=== PATIENT | female | born 1935 | race Caucasian/White ===

== ENCOUNTER → 2016-08-07 | Outpatient (CLI) | payer MEDICARE ==
[~2016-08-07] MED LIST: GASTROGRAFIN SOLUTION 30ML (Q9963) As Ordered ONE; ISOVUE-370 76% 100ML VIAL (Q9967) As Ordered ONE
--- NOTE | 2016-08-07 16:59 | REP ---
CT ABDOMEN: REASON: Abdominal pain, vomiting, and history of pancreatitis. PRIORS: None. CONTRAST: 100 mL [id number]. The precontrast enhanced portion of the examination shows the hepatic and splenic densities to be within normal limits. The surgical clips are seen in the gallbladder fossa from previous cholecystectomy. There are no nephroliths or proximal ureteroliths. Chronic changes are seen throughout the lung bases with cylindrical and varicoid bronchiectasis. Asymmetric densities are seen throughout the lung bases Consistent with fibrotic changes. There are no patchy opacities or pleural effusions. The contrast enhanced portion of the exam shows the liver, spleen, pancreas, and adrenal glands, and kidneys to be within normal limits. The pancreas is somewhat atrophic. The abdominal aorta and paraaortic regions are within normal limits. There are some calcific atherosclerotic changes. There is no free fluid or free air in the abdomen. The bowel loops and their mesenteries are within normal limits. There is no evidence of an intraabdominal mass or adenopathy. The distal transverse colon and descending colon are content filled. There are a few scattered colonic diverticula. CT PELVIS: There are a few scattered sigmoid colon diverticula. There is no mass or adenopathy. There is no free fluid or free air. Bone window technique throughout the exam shows the osseous structures to be within normal limits for the patient's age. IMPRESSION: 1. Chronic lung field changes as described above. Consider complete evaluation with chest CT. 2. No evidence of acute intraabdominal or intrapelvic disease with findings as described above. Signed by Brad Talbert DO 08/10/2016 03:07 P
== END ==
LOC: M RAD 13:20
PROVIDERS: ATTEND Family Medicine
DX: R11.10 Vomiting, unspecified (principal); R10.9 Unspecified abdominal pain
CPT/HCPCS: 74178; Q9963; Q9967

== ENCOUNTER → 2016-08-14 | Outpatient (CLI) | payer MEDICARE ==
[~2016-08-14] MED LIST changes: +E-Z-GAS II EFFERVESCENT PACKET (SODIUM BICARB./CITRIC ACID/SIMETHICONE) As Ordered ONE; +E-Z-HD 98% w/w 340GM SUSP BTL As Ordered ONE; +E-Z-PAQUE 96% w/w SUSP 176GM BTL As Ordered ONE; -GASTROGRAFIN SOLUTION 30ML (Q9963) As Ordered ONE; -ISOVUE-370 76% 100ML VIAL (Q9967) As Ordered ONE
--- NOTE | 2016-08-15 07:58 | REP ---
UPPER GI, AIR CONTRAST: The procedure was performed under the direct supervision of Dr. Andrew. The images were reviewed with Dr. Andrew. The general manager in training film shows no organomegaly or pathological masses. The intestinal gas pattern is nonspecific. There are surgical clips noted in the right upper quadrant. There is residual contrast in the distal colon from the previous CT scan performed on 08/07/2016. The gas producing granules were given in the erect position, however, the patient was unable to stand, therefore liquid barium was administered in the prone oblique position. The oral and pharyngeal stages of deglutition are unremarkable. Esophageal transport is prompt and efficient and there is no esophagitis, stricture or mucosal ring. There is a small hiatal hernia present. Only a few pictures of the stomach and duodenum were able to be obtained because the patient promptly vomited all the contrast back up. The stomach is grossly normal. There is no evidence of gastritis, neoplasm or ulcer disease. The duodenum is grossly normal. The mucosal folds are smooth and regular. There is no evidence of duodenitis, pancreatitis, peptic ulcer disease or neoplasm. The visualized portion of the proximal small bowel appears normal in course and caliber. IMPRESSION: The exam is limited due to patient mobility and the patient vomited up all of the contrast soon after ingesting. There is a small hiatal hernia present. The stomach and duodenum are grossly normal. 57 seconds of fluoroscopy time was utilized for this procedure. Reviewed by EITAN Ruiz 08/17/2016 07:06 PEdited and Signed by Farzad Andrew MD 08/18/2016 03:57 P
== END ==
LOC: M RAD 09:01
PROVIDERS: ATTEND Family Medicine
DX: R10.9 Unspecified abdominal pain (principal); R11.10 Vomiting, unspecified

== ENCOUNTER → 2016-08-21 | Outpatient (REF) | payer MEDICARE | LOC: M SFHCCLAY 13:46 | PROVIDERS: ATTEND Nurse Practitioner Family | DX: N39.0 Urinary tract infection, site not specified (principal) ==

== ENCOUNTER → 2016-09-30 | Outpatient (REF) | payer MEDICARE | LOC: M SFHCCLAY 16:22 | PROVIDERS: ATTEND Family Medicine | DX: R31.29 Other microscopic hematuria (principal) ==

== ENCOUNTER → 2016-12-09 | Outpatient (REF) ==
[2016-12-09 10:38] LABS: MEAN CORPUSCULAR HEMOGLOBIN 33.4 pg (27.0-33.0); MEAN CORPUSCULAR VOLUME 98.5 fl (80.0-96.0); RED CELL DISTRIBUTION WIDTH 13.7 % (11.5-14.5)
[2016-12-09 10:53] LABS: CALCIUM LEVEL 8.7 MG/DL (8.8-10.2); CREATININE FOR GFR 1.18 MG/DL (0.55-1.02); GLOMERULAR FILTRATION RATE 46.7 (>32); POTASSIUM SERUM 4.9 MEQ/L (3.5-5.1)
== END ==
PROVIDERS: ATTEND Family Medicine
DX: I11.9 Hypertensive heart disease without heart failure (principal); I50.9 Heart failure, unspecified

== ENCOUNTER → 2017-01-06 | Outpatient (REF) ==
[2017-01-06 09:32] LABS: MEAN CORPUSCULAR HEMOGLOBIN 31.9 pg (27.0-33.0); MEAN CORPUSCULAR HGB CONC 32.8 g/dl (32.0-36.5); MEAN CORPUSCULAR VOLUME 97.3 fl (80.0-96.0); RED CELL DISTRIBUTION WIDTH 13.1 % (11.5-14.5); WHITE BLOOD COUNT 9.4 10^3/uL (4.0-10.0)
[2017-01-06 10:16] LABS: CALCIUM LEVEL 8.5 MG/DL (8.8-10.2); CREATININE FOR GFR 1.18 MG/DL (0.55-1.02); GLOMERULAR FILTRATION RATE 46.7 (>32)
== END ==
PROVIDERS: ATTEND Family Medicine
DX: I10 Essential (primary) hypertension (principal)

== ENCOUNTER → 2017-03-03 | Outpatient (REF) | PROVIDERS: ATTEND Family Medicine | DX: E11.9 Type 2 diabetes mellitus without complications (principal) ==

== ENCOUNTER → 2017-03-16 | Outpatient (REF) ==
[2017-03-16 11:48] LABS: CALCIUM LEVEL 8.6 MG/DL (8.8-10.2); CREATININE FOR GFR 1.28 MG/DL (0.55-1.02); GLOMERULAR FILTRATION RATE 42.5 (>32); POTASSIUM SERUM 3.5 MEQ/L (3.5-5.1)
== END ==
PROVIDERS: ATTEND Family Medicine
DX: E87.6 Hypokalemia (principal)

== ENCOUNTER → 2017-03-31 | Outpatient (REF) ==
[2017-03-31 11:17] LABS: MEAN CORPUSCULAR VOLUME 94.2 fl (80.0-96.0); PLATELET COUNT, AUTOMATED 160 10^3/uL (150-450); RED CELL DISTRIBUTION WIDTH 12.8 % (11.5-14.5); WHITE BLOOD COUNT 8.4 10^3/uL (4.0-10.0)
[2017-03-31 11:49] LABS: CALCIUM LEVEL 8.3 MG/DL (8.8-10.2); CREATININE FOR GFR 1.37 MG/DL (0.55-1.02); GLOMERULAR FILTRATION RATE 39.3 (>32); POTASSIUM SERUM 3.5 MEQ/L (3.5-5.1)
== END ==
PROVIDERS: ATTEND Family Medicine
DX: I10 Essential (primary) hypertension (principal)

== ENCOUNTER → 2017-04-29 | Outpatient (REF) | DX: D72.829 Elevated white blood cell count, unspecified (principal) ==

== ENCOUNTER → 2017-04-29 | Outpatient (REF) ==
[2017-04-29 14:16] LABS: HEMATOCRIT 35.8 % (36.0-47.0); HEMOGLOBIN 12.2 g/dl (12.0-16.0); MEAN CORPUSCULAR HEMOGLOBIN 32.5 pg (27.0-33.0); MEAN CORPUSCULAR HGB CONC 34.1 g/dl (32.0-36.5); MEAN CORPUSCULAR VOLUME 95.5 fl (80.0-96.0); PLATELET COUNT, AUTOMATED 171 10^3/uL (150-450); RED BLOOD COUNT 3.75 10^6/uL (4.00-5.40); RED CELL DISTRIBUTION WIDTH 12.6 % (11.5-14.5); WHITE BLOOD COUNT 13.4 10^3/uL (4.0-10.0)
[2017-04-29 14:53] LABS: ANION GAP 7 MEQ/L (8-16); BLOOD UREA NITROGEN 22 MG/DL (7-18); CALCIUM LEVEL 8.5 MG/DL (8.8-10.2); CARBON DIOXIDE LEVEL 31 MEQ/L (21-32); CHLORIDE LEVEL 98 MEQ/L (98-107); CREATININE FOR GFR 1.26 MG/DL (0.55-1.02); GLOMERULAR FILTRATION RATE 43.3 (>32); GLUCOSE, FASTING 222 MG/DL (83-110); POTASSIUM SERUM 3.8 MEQ/L (3.5-5.1); SODIUM LEVEL 136 MEQ/L (136-145)
== END ==
DX: R05 Cough (principal)

== ENCOUNTER → 2017-04-30 | Outpatient (REF) ==
[2017-04-30 09:30] LABS: HEMATOCRIT 38.4 % (36.0-47.0); HEMOGLOBIN 12.9 g/dl (12.0-16.0); MEAN CORPUSCULAR HEMOGLOBIN 31.9 pg (27.0-33.0); MEAN CORPUSCULAR HGB CONC 33.6 g/dl (32.0-36.5); PLATELET COUNT, AUTOMATED 198 10^3/uL (150-450); RED BLOOD COUNT 4.04 10^6/uL (4.00-5.40); RED CELL DISTRIBUTION WIDTH 12.5 % (11.5-14.5); WHITE BLOOD COUNT 12.7 10^3/uL (4.0-10.0)
== END ==
DX: D72.829 Elevated white blood cell count, unspecified (principal)

== ENCOUNTER → 2017-06-08 | Outpatient (REF) ==
[2017-06-08 10:43] LABS: ESTIMATED AVERAGE GLUCOSE 186 MG/DL (60-110); HEMOGLOBIN A1c 8.1 %
== END ==
DX: E11.9 Type 2 diabetes mellitus without complications (principal)

== ENCOUNTER → 2017-10-05 | Outpatient (REF) | payer MEDICARE, OTHER ==
[2017-10-05 11:58] LABS: HEMATOCRIT 39.2 % (36.0-47.0); HEMOGLOBIN 13.1 g/dl (12.0-15.5); MEAN CORPUSCULAR HGB CONC 33.4 g/dl (32.0-36.5); MEAN CORPUSCULAR VOLUME 95.8 fl (80.0-96.0); PLATELET COUNT, AUTOMATED 161 10^3/uL (150-450); RED BLOOD COUNT 4.09 10^6/uL (4.00-5.40); RED CELL DISTRIBUTION WIDTH 12.7 % (11.5-14.5); WHITE BLOOD COUNT 10.8 10^3/uL (4.0-10.0)
[2017-10-05 12:23] LABS: ANION GAP 10 MEQ/L (8-16); BLOOD UREA NITROGEN 26 MG/DL (7-18); CALCIUM LEVEL 8.7 MG/DL (8.8-10.2); CARBON DIOXIDE LEVEL 30 MEQ/L (21-32); CHLORIDE LEVEL 100 MEQ/L (98-107); CREATININE FOR GFR 1.38 MG/DL (0.55-1.30); GLUCOSE, FASTING 197 MG/DL (70-100); POTASSIUM SERUM 3.7 MEQ/L (3.5-5.1); SODIUM LEVEL 140 MEQ/L (136-145)
== END ==
DX: I10 Essential (primary) hypertension (principal)
CPT/HCPCS: 80048

== ENCOUNTER → 2017-11-11 | Outpatient (REF) | payer MEDICARE, OTHER | LOC: SKLAB3 17:30 | DX: R05 Cough (principal) | CPT/HCPCS: 87633 ==

== ENCOUNTER → 2017-11-12 | Outpatient (REF) | payer MEDICARE, OTHER ==
[2017-11-12 10:13] LABS: HEMATOCRIT 37.1 % (36.0-47.0); HEMOGLOBIN 12.6 g/dl (12.0-15.5); MEAN CORPUSCULAR HEMOGLOBIN 32.6 pg (27.0-33.0); MEAN CORPUSCULAR VOLUME 96.1 fl (80.0-96.0); PLATELET COUNT, AUTOMATED 138 10^3/uL (150-450); RED BLOOD COUNT 3.86 10^6/uL (4.00-5.40); RED CELL DISTRIBUTION WIDTH 12.9 % (11.5-14.5)
[2017-11-12 10:27] LABS: ANION GAP 10 MEQ/L (8-16); BLOOD UREA NITROGEN 16 MG/DL (7-18); CALCIUM LEVEL 8.8 MG/DL (8.8-10.2); CARBON DIOXIDE LEVEL 28 MEQ/L (21-32); CHLORIDE LEVEL 100 MEQ/L (98-107); CREATININE FOR GFR 1.28 MG/DL (0.55-1.30); GLOMERULAR FILTRATION RATE 42.4 (>32); GLUCOSE, FASTING 133 MG/DL (70-100); POTASSIUM SERUM 3.4 MEQ/L (3.5-5.1); SODIUM LEVEL 138 MEQ/L (136-145)
== END ==
DX: R05 Cough (principal)
CPT/HCPCS: 80048

== ENCOUNTER → 2017-11-15 | Outpatient (REF) | payer MEDICARE, OTHER | DX: R05 Cough (principal); I51.7 Cardiomegaly | CPT/HCPCS: 71045 ==

== ENCOUNTER → 2017-11-19 | Outpatient (REF) | payer MEDICARE, OTHER | DX: R06.2 Wheezing (principal) | CPT/HCPCS: 71045 ==

== ENCOUNTER → 2017-12-07 | Outpatient (REF) | payer MEDICARE, OTHER ==
[2017-12-07 10:05] LABS: ESTIMATED AVERAGE GLUCOSE 157 MG/DL (60-110); HEMOGLOBIN A1c 7.1 %
== END ==
DX: E11.9 Type 2 diabetes mellitus without complications (principal)
CPT/HCPCS: 83036

== ENCOUNTER → 2018-04-06 | Outpatient (REF) ==
[2018-04-06 09:55] LABS: HEMATOCRIT 39.9 % (36.0-47.0); HEMOGLOBIN 13.3 g/dl (12.0-15.5); MEAN CORPUSCULAR HEMOGLOBIN 31.5 pg (27.0-33.0); MEAN CORPUSCULAR HGB CONC 33.3 g/dl (32.0-36.5); MEAN CORPUSCULAR VOLUME 94.5 fl (80.0-96.0); PLATELET COUNT, AUTOMATED 158 10^3/uL (150-450); RED BLOOD COUNT 4.22 10^6/uL (4.00-5.40)
[2018-04-06 10:23] LABS: CALCIUM LEVEL 8.7 MG/DL (8.8-10.2); CREATININE FOR GFR 1.22 MG/DL (0.55-1.30); GLOMERULAR FILTRATION RATE 44.8 (>32)
== END ==
PROVIDERS: ATTEND Family Medicine
DX: I10 Essential (primary) hypertension (principal)

== ENCOUNTER → 2018-06-07 | Outpatient (REF) ==
[2018-06-07 10:04] LABS: HEMOGLOBIN A1c 7.2 %
== END ==
PROVIDERS: ATTEND Family Medicine
DX: E11.9 Type 2 diabetes mellitus without complications (principal); Z79.899 Other long term (current) drug therapy

== ENCOUNTER 2018-09-16 09:07 | Inpatient (IN) | payer MEDICARE, OTHER ==
[~2018-09-16] VITALS: Ht 165.1 cm; Wt 80.8 kg
[~2018-09-16 09:07] MED LIST changes: -E-Z-GAS II EFFERVESCENT PACKET (SODIUM BICARB./CITRIC ACID/SIMETHICONE) As Ordered ONE; -E-Z-HD 98% w/w 340GM SUSP BTL As Ordered ONE; -E-Z-PAQUE 96% w/w SUSP 176GM BTL As Ordered ONE; +cloNIDine HCL 0.1 MG/24 HR PATCH TOP SCH
--- NOTE | 2018-09-16 09:46 | REP ---
CT Head without contrast HISTORY: Infarction COMPARISON: None Areas of decreased attenuation are present in the basal ganglia and left internal capsule. These represent old lacunar infarctions. Areas of decreased attenuation are present in the periventricular and subcortical white matter. This represents small-vessel ischemic disease. There is no intraparenchymal hemorrhage, acute infarct, mass or midline shift. The ventricular system and cortical sulci are dilated consistent with moderate volume loss. There is no extra cerebral collection. There is no fracture. Mucosal thickening is present in the ethmoid and maxillary sinuses. A right ocular prosthesis is present. IMPRESSION: 1. 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 2. Small vessel ischemic disease. 3. Moderate volume loss. Electronically Signed by Omar Brambila MD 09/16/2018 09:37 A
[2018-09-16] MEDS ORDERED: GLIP5TAB8 PO ×2 (09:49)
[2018-09-16] MEDS ORDERED: LISI10TA4 PO (09:49)
[2018-09-16] MEDS ORDERED: MILKSUS7 PO (09:49)
[2018-09-16] MEDS ORDERED: COLA100C5 PO (09:49)
[2018-09-16] MEDS ORDERED: METO1TAB7 PO (09:49)
[2018-09-16] MEDS ORDERED: ZOFR4TAB16 PO (09:49)
[2018-09-16] MEDS ORDERED: DULC10SU2 PR (09:49)
[2018-09-16] MEDS ORDERED: ECOT81TA5 PO (09:49)
[2018-09-16] MEDS ORDERED: SENN-23 PO (09:49)
[2018-09-16] MEDS ORDERED: BIMA01SOL OS (09:49)
[2018-09-16] MEDS ORDERED: ENEMENE PR (09:49)
[2018-09-16] MEDS ORDERED: SERT-138 PO (09:49)
[2018-09-16] MEDS ORDERED: SIMV40TA2 PO (09:49)
[2018-09-16] MEDS ORDERED: ACET-907 PO (09:49)
[2018-09-16] MEDS ORDERED: OMEP40CA2 PO (09:51)
[2018-09-16] MEDS ORDERED: FURO20TA2 PO (09:51)
[2018-09-16 10:14] LABS: BASO % 0.4 % (0.0-1.0); EOS # 0.1 10^3/uL (0.0-0.50); HEMATOCRIT 37.8 % (36.0-47.0); HEMOGLOBIN 12.5 g/dl (12.0-15.5); LYMPH # 1.4 10^3/uL (1.5-4.5); LYMPH % 15.3 % (24.0-44.0); MEAN CORPUSCULAR HEMOGLOBIN 32.5 pg (27.0-33.0); MEAN CORPUSCULAR HGB CONC 33.1 g/dl (32.0-36.5); MEAN CORPUSCULAR VOLUME 98.2 fl (80.0-96.0); MONO # 0.6 10^3/uL (0.0-0.8); MONO % 5.9 % (0.0-5.0); NEUTROPHILS # 7.1 10^3/uL (1.8-7.7); NEUTROPHILS % 76.9 % (36.0-66.0); PLATELET COUNT, AUTOMATED 158 10^3/uL (150-450); RED BLOOD COUNT 3.85 10^6/uL (4.00-5.40); WHITE BLOOD COUNT 9.3 10^3/uL (4.0-10.0)
[2018-09-16 10:24] LABS: INR 1.05; PROTHROMBIN TIME 13.8 SECONDS (12.1-14.4)
[2018-09-16 10:25] LABS: PARTIAL THROMBOPLASTIN TIME 42.1 SECONDS (25.4-37.6)
[2018-09-16 10:37] LABS: CALCIUM LEVEL 9.4 MG/DL (8.8-10.2); CREATININE FOR GFR 1.31 MG/DL (0.55-1.30); GLOMERULAR FILTRATION RATE 41.3 (>32); MB/CK RELATIVE INDEX 3.55 (< OR =4); POTASSIUM SERUM 4.3 MEQ/L (3.5-5.1); TROPONIN I 0.02 NG/ML (< 0.10)
--- NOTE | 2018-09-16 10:39 | REP ---
CHEST, PORTABLE: AP portable view of the chest is performed and compared to a prior study of 11/19/2017. Chronic interstitial changes are stable. There is mild cardiomegaly. The mediastinal silhouette is unchanged. IMPRESSION: Stable chronic changes. No acute infiltrate. Electronically Signed by Farzad Andrew MD 09/20/2018 09:41 A
[2018-09-16] MEDS ORDERED: DEXTROSE 50% 50 ML SYRINGE IV PRN (13:45)
[2018-09-16] MEDS ORDERED: GLUCAGON FOR INJ 1 MG VIAL (J1610) SC PRN (13:45)
[2018-09-16] MEDS ORDERED: GLUCOSE 4 GM CHEW TABLET PO PRN (13:45)
--- NOTE | 2018-09-16 13:54 | REP ---
MRA Brain without contrast History: Right side weakness 3-D [id number] MR angiography was performed at the level of the [place]. Examination is limited secondary to motion. There is no aneurysm or arteriovenous malformation. Mild atherosclerotic disease involves the cavernous internal carotid arteries. Moderate atherosclerotic disease involves the middle cerebral artery trifurcations. Major intracranial vessels are patent. The left vertebral artery is dominant. Impression: 1. There is no aneurysm or arteriovenous malformation. 2. Atherosclerotic disease as described above. Electronically Signed by Omar Brambila MD 09/16/2018 01:46 P
[2018-09-16] MEDS: LISINOPRIL 5 MG TAB PO SCH ×2 (14:45→21:51)
--- NOTE | 2018-09-16 14:52 | REP ---
MR BRAIN WITHOUT CONTRAST: HISTORY: Right side weakness. COMPARISON: CT 09/16/2018. An area of increased signal intensity on diffusion weighted images is present in the posterior limb of the left internal capsule. This is decreased in signal intensity on ADC images and is consistent with an acute infarction. Areas of increased signal intensity on T2-weighted images are present in the basal ganglia, genu of the left internal capsule, and right thalamus. These represent old lacunar infarctions. Areas of increased signal intensity on T2-weighted images are present in the periventricular and subcortical white matter and cory. This represents small vessel ischemic disease. There is no intraparenchymal hemorrhage, mass, or midline shift. The ventricular system and cortical sulci are dilated consistent with moderate volume loss. There is no extracerebral collection. Mucosal thickening is present in the ethmoid and maxillary sinuses. An ocular prosthesis is present. IMPRESSION: 1. Acute left internal capsule lacunar infarction. 2. Old bilateral basal ganglia, left internal capsule and right thalamic lacunar infarctions. 3. Small vessel ischemic disease. 4. Moderate volume loss. Electronically Signed by Omar Brambila MD 09/16/2018 03:06 P
[2018-09-16 15:00] VITALS: BP 210/92
--- NOTE | 2018-09-16 15:14 | HPEPDOC ---
General Date of Admission 09/16/18 Date of Service: Sep 16, 2018 Chief Complaint The patient is a 82-year-old female admitted with a reason for visit of [facility]. 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 It was also noted that she was weaker on the right side compared to left and needed 2 max assist to get her back from WC to bed when normally she needs only 1 assist. Last time she was noted to be well is unclear from the [place] notes but it is in the night sometime before 6:00Am. Patient was brought to the ED as a stroke call. CT head in the ED was negative for any acute infarction or hemorrhage. MRA brain negative. Pending MRI brain. On my interview patient complained about problem speaking , denied any swallowing problems. She did indicate that she was unable to hold up her right hand but showed me that she was able to hold up her left hand above her head. Family says her right side is weaker than left which is new. Normally right and left sides are symmetrically weak. She has not been able to walk for more than a year due to leg weakness. The patient knew she was in the hospital. Home Medications Scheduled Aspirin (Ecotrin) 81 Mg Tablet.dr, 81 MG PO DAILY, (Reported) Bimatoprost (Lumigan) 0.01% 2.5ML Drops, 1 DROP OS QHS, (Reported) Docusate Sodium (Colace) 100 Mg Capsule, 100 MG PO QHS, (Reported) Furosemide (Furosemide) 20 Mg Tablet, 20 MG PO DAILY, (Reported) Glipizide (Glipizide) 5 Mg Tablet, 5 MG PO DAILY, (Reported) Glipizide (Glipizide) 5 Mg Tablet, 2.5 MG PO QHS, (Reported) Lisinopril (Lisinopril) 10 Mg Tablet, 15 MG PO QHS, (Reported) Metoprolol Succinate (Metoprolol Succinate) 50 Mg Tab.er.24h, 50 MG PO DAILY, (Reported) Omeprazole (Omeprazole) 40 Mg Capsule.dr, 40 MG PO BID, (Reported) Sennosides/Docusate Sodium (Senna-S Tablet) 1 Each Tablet, 2 TAB PO QHS, (Reported) Sertraline HCl (Sertraline HCl) 100 Mg Tablet, 100 MG PO DAILY, (Reported) Simvastatin (Simvastatin) 40 Mg Tablet, 40 MG PO QHS, (Reported) Scheduled PRN Acetaminophen (Tylenol) 325 Mg Tablet, 650 MG PO Q4H PRN for PAIN, (Reported) Bisacodyl (Dulcolax) 10 Mg Supp.rect, 10 MG [place] DAILY PRN for CONSTIPATION, (Reported) Magnesium Hydroxide (Milk of Magnesia) 400 Mg/5 Ml Oral.susp, 30 ML PO DAILY PRN for CONSTIPATION, (Reported) Ondansetron HCl (Zofran) 4 Mg Tablet, 4 MG PO Q6H PRN for NAUSEA OR VOMITING, (Reported) Sodium Phosphate,[place]-Dibasic (Enema) 133 Ml Enema, 1 RADHA [place] DAILY PRN for CONSTIPATION, (Reported) Allergies Coded Allergies: No Known Allergies (Verified , 10/16/02) Past Medical History Medical History 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 DEPRESSION , HYPERTENSION, ORTHOSTATIC HYPOTENSION, DM , HYPERCHOLESTEROLEMIA , HISTORY OF PANCREATITIS , ARTHRITIS , ENTHESOPATHY OF HIP REGION , ACTINIC KERATOSIS , URINARY INCONTINENCE, CHF , Chronic right sided weakness Surgical History TENDON REPAIR LEFT THUMB , RIGHT EYE REMOVAL DUE TO ULCERATION , GALLBLADDER , TOTAL HYSTERECTOMY Family History FATHER: 58 YRS, SUICIDE MOTHER: , LIVED TO 91, SIBLINGS: , BROTHER WITH ASTHMA, 62; SISTER HAD COLON CA 2 SON(S) - HEALTHY Social History * Smoker: non-smoker Alcohol: Denies Drugs: denies A-FIB/CHADSVASC A-FIB History Current/History of A-Fib/PAF?: No Review of Systems Constitutional: Reports: Weakness; Denies: Chills, Fever, Night Sweats ENT: Reports: Dysphagia Skin: Denies: Rash, Lesions, Breakdown Pulmonary: Denies: Dyspnea, Cough Cardiovascular: Denies: Chest Pain, Palpitations, Orthopnea, Paroxysmal Noc. 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 Mucous membranes dry) Neck Exam: Positive: Supple; Negative: JVD, thyromegaly Chest Exam: Positive: Clear to auscultation, Normal air movement Heart Exam: Positive: Rate Normal, Regular Rhythm, Normal S1, Normal S2; Negative: Murmurs, Rubs Telemetry: Positive: No significant arrhythmia Abdomen Exam: Positive: Normal bowel sounds, Soft; Negative: Tenderness, Hepatospenomegaly Extremity Exam: Negative: Clubbing, Cyanosis, Edema Neuro Exam: Positive: Normal Tone, Other (slurred speech, right facial droop, strength left upper 4/5 left lower 3/5, right upper 3/5 right lower 2/5) Psych Exam: Positive: Anxiety, Other (oriented x 2) Vital Signs Vital Signs Date Time Temp Pulse Resp B/P (MAP) Pulse Ox O2 Delivery O2 Flow Rate FiO2 09/16/18 10:37 56 100 09/16/18 10:30 18 177/82 (113) Laboratory Data Labs 24H Laboratory Tests 2 09/16/18 09:17: Immature Granulocyte % (Auto) 0.5, White Blood Count 9.3, Red Blood Count 3.85L, Hemoglobin 12.5, Hematocrit 37.8, Mean Corpuscular Volume 98.2H, Mean Corpuscular Hemoglobin 32.5, Mean Corpuscular Hemoglobin Concent 33.1, Red Cell Distribution Width 13.2, Platelet Count 158, Neutrophils (%) (Auto) 76.9H, Lymphocytes (%) (Auto) 15.3L, Monocytes (%) (Auto) 5.9H, Eosinophils (%) (Auto) 1.0, Basophils (%) (Auto) 0.4, Neutrophils # (Auto) 7.1, Lymphocytes # (Auto) 1.4L, Monocytes # (Auto) 0.6, Eosinophils # (Auto) 0.1, Basophils # (Auto) 0.0, Nucleated Red Blood Cells % (auto) 0.0, Prothrombin Time 13.8, Prothromb Time International Ratio 1.05, Activated Partial Thromboplast Time 42.1H, Anion Gap 7L, Glomerular Filtration Rate 41.3, Blood Urea Nitrogen 18, Creatinine 1.31H, Sodium Level 141, Potassium Level 4.3, Chloride Level 104, Carbon Dioxide Level 30, Calcium Level 9.4, Total Creatine Kinase 31, Creatine Kinase MB 1.0, Creatine Kinase MB Relative Index 3.55, Troponin I 0.02 CBC/BMP Laboratory Tests 09/16/18 09:17 Red Blood Count 3.85 L, Mean Corpuscular Volume 98.2 H, Mean Corpuscular Hemoglobin 32.5, Mean Corpuscular Hemoglobin Concent 33.1, Red Cell Distribution Width 13.2, Neutrophils (%) (Auto) 76.9 H, Lymphocytes (%) (Auto) 15.3 L, Monocytes (%) (Auto) 5.9 H, Eosinophils (%) (Auto) 1.0, Basophils (%) (Auto) 0.4, Neutrophils # (Auto) 7.1, Lymphocytes # (Auto) 1.4 L, Monocytes # (Auto) 0.6, Eosinophils # (Auto) 0.1, Basophils # (Auto) 0.0, Calcium Level 9.4, Total Creatine Kinase 31 Assessment/Plan 82 year old female from [facility], wheel chair bound, stand to pivot with 1 assist with 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 It was also noted that she was weaker on the right side than usual and needed 2 max assist to get her back from WC to bed when normally she needs only 1 assist. Last time she was noted to be well is unclear from the [place] notes but it is in the night sometime before 6:00Am. Patient was brought to the ED as a stroke call. Pateint admitted to the hospitalist service for Stroke. Acute Ischemic stroke patient with right sided hemiparesis awaiting MRI brain Will continue ASA, Statin, consult neurology permissive Hypertension allow SBP of 160 to 180. Dysphagia Nurse noted difficulty in swallowing water swallow evaluation If cannot swallow then will have to upgrade to PCU as may need IV blood pressure medications. As per her advance directive: No feeding tube. Hypertension SBP in 190 to 200 will continue metoprolol and lisinopril bid and clonidine prn with hold parameters if the patient can swallow will use clonidine patch if SBP> 180 if patient cannot swallow. Diabetes sugars controlled will give lispro sliding scale AC hold glipizide as unsure if the patient will be able to eat or not. Hypercholesterolemia continue statin Depression sertraline. CODE: DNR and DNI Plan / VTE VTE Prophylaxis Ordered?: Yes RADHA DODSON MD Sep 16, 2018 12:49
[2018-09-16] MEDS: METOPROLOL SUCC (TopROL XL) 50MG **XL** TAB PO SCH (15:40)
[2018-09-16] MEDS: SERTRALINE 100 MG TAB PO SCH (15:40)
[2018-09-16] MEDS: ASPIRIN 81 MG ENTERIC TAB PO SCH (15:40)
[2018-09-16 15:54] VITALS: BP 164/81
[2018-09-16] MEDS ORDERED: hydrALAZINE INJ 20 MG/ML VIAL IV ONE (16:00)
--- NOTE | 2018-09-16 16:03 | NUR ---
Pt presents with moderate-severe oropharyngeal dysphagia as characterized by decreased right oral sensation, tongue deviation to the right and right lip droop. Pt. vocal quality is wet and swallow is audible with thin and nectar thick liquids. Pt. does not follow commands consistently. Recommend: Puree solids and honey thick liquids. Meds crushed in puree assist. Full upright position. Assist with feeding. Limit bite size to approximately 1/2 teaspoon. Addendum: 09/16/18 at 1606 by DELON MARTINEZ [facility] Amended: Links added.
[2018-09-16] MEDS ORDERED: CLOPIDOGREL 75 MG TAB PO ONE (16:30)
[2018-09-16] MEDS: cloNIDine 0.1 MG TAB PO SCH (17:26)
[2018-09-16] MEDS: HumaLOG INSULIN (NovoLOG) PER UNIT SC SCH (17:30)
[2018-09-16 17:47] VITALS: BP 204/94
[2018-09-16 18:41] VITALS: BP 191/88
[2018-09-16 18:50] VITALS: BP 154/70
[2018-09-16] MEDS ORDERED: glipiZIDE (GLUCOTROL) 5 MG TAB PO SCH (21:00)
[2018-09-16] MEDS: OMEPRAZOLE 20 MG CAP PO SCH (21:50)
[2018-09-16] MEDS: SIMVASTATIN 40 MG TAB PO SCH (21:51)
[2018-09-16 22:00] VITALS: BP 190/85
[2018-09-17 06:00] VITALS: BP 188/78
[2018-09-17] MEDS: cloNIDine 0.1 MG TAB PO SCH ×4 (06:37→21:13)
[2018-09-17 06:53] LABS: BASO % 0.3 % (0.0-1.0); EOS # 0.1 10^3/uL (0.0-0.50); EOS % 1.3 % (0.0-3.0); HEMATOCRIT 34.6 % (36.0-47.0); HEMOGLOBIN 11.2 g/dl (12.0-15.5); LYMPH # 1.3 10^3/uL (1.5-4.5); LYMPH % 19.5 % (24.0-44.0); MEAN CORPUSCULAR HEMOGLOBIN 31.3 pg (27.0-33.0); MEAN CORPUSCULAR HGB CONC 32.4 g/dl (32.0-36.5); MEAN CORPUSCULAR VOLUME 96.6 fl (80.0-96.0); MONO # 0.5 10^3/uL (0.0-0.8); NEUTROPHILS # 4.9 10^3/uL (1.8-7.7); NEUTROPHILS % 71.6 % (36.0-66.0); PLATELET COUNT, AUTOMATED 145 10^3/uL (150-450); RED BLOOD COUNT 3.58 10^6/uL (4.00-5.40); WHITE BLOOD COUNT 6.9 10^3/uL (4.0-10.0)
[2018-09-17 07:18] LABS: CALCIUM LEVEL 8.6 MG/DL (8.8-10.2); CREATININE FOR GFR 1.23 MG/DL (0.55-1.30); GLOMERULAR FILTRATION RATE 44.4 (>32)
--- NOTE | 2018-09-17 08:39 | ECGEPIP ---
[facility] - ED Test Date: 2018-09-16 Pat Name: JORGE GOMEZ Department: Room: - Gender: Female School Cleaner: remi : 1935 Requested By: Antonina Saleh Order Number: [id number] Reading MD: Fazal Butcher Measurements Intervals [place] Rate: 60 P: DC: -1 QRS: 1 QRSD: 86 T: 44 QT: 455 QTc: 455 Interpretive Statements SUPRAVENTRICULAR RHYTHM- likely sinus but limited interpretation due to baseline artifact Delayed anterior R wave progression Comparison tracing not on file Electronically Signed on 09-17-2018 8:39:49 EDT by Fazal Butcher
[2018-09-17] MEDS: METOPROLOL SUCC (TopROL XL) 50MG **XL** TAB PO SCH (08:45)
[2018-09-17] MEDS: ENOXAPARIN 30 MG/0.3 ML SYR (J1650) SC SCH (08:51)
[2018-09-17] MEDS: HumaLOG INSULIN (NovoLOG) PER UNIT SC SCH ×3 (08:51→17:32)
[2018-09-17] MEDS: SERTRALINE 100 MG TAB PO SCH (08:52)
[2018-09-17] MEDS: LISINOPRIL 5 MG TAB PO SCH ×2 (08:52→21:00)
[2018-09-17] MEDS: ASPIRIN 81 MG ENTERIC TAB PO SCH (08:52)
[2018-09-17] MEDS: OMEPRAZOLE 20 MG CAP PO SCH ×2 (08:52→21:13)
[2018-09-17] MEDS: CLOPIDOGREL 75 MG TAB PO SCH (08:52)
[2018-09-17] MEDS ORDERED: glipiZIDE (GLUCOTROL) 5 MG TAB PO SCH (09:00)
--- NOTE | 2018-09-17 09:37 | CR ---
DATE OF CONSULTATION: 09/16/2018 REFERRING PHYSICIAN: Dr. Tami Swanson REASON FOR CONSULTATION: Slurred speech and right-sided weakness. HISTORY OF PRESENT ILLNESS: Emily Antoine is an 82-year-old woman with history of multiple system atrophy with autonomic failure, recurrent falls, who lives at [facility]. The patient has not been able to walk over the last couple of years. She sometimes gets confused and has cognitive deficits. She did not have any trouble speaking yesterday. When nurses went to check up on her first thing in the morning around 07:30 a.m., she was found to have slurred speech and right-sided arm and leg weakness. She was brought to [facility] for further evaluation. The patient is able to understand and follow commands. She appears to have slurred speech. Her slurred speech improved towards the end of my visit with her today. She had more weakness on right arm and leg this morning. This evening, she is moving her right arm and leg slightly more. She denies any headaches, neck or back pain. She denies dysphasia, diplopia, urinary incontinence, falls, or loss of consciousness. Her CT scan of head was unremarkable. MRI scan of brain showed acute left internal capsule ischemic stroke. MRA brain was unremarkable except mild atherosclerosis of bilateral carotid arteries. 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 HOME MEDICATIONS: aspirin 81 mg by mouth, Lumigan eyedrops, glipizide 5 mg by mouth in the morning and 2.5 mg in the evening, lisinopril 10 mg 1-1/2 tablet by mouth daily, metoprolol 50 mg by mouth daily, Prilosec 40 mg by mouth twice a day, Zoloft 100 mg by mouth daily, simvastatin 40 mg by mouth daily, Lasix 20 mg by mouth daily, Colace 1 mg by mouth daily. ALLERGIES: None. SOCIAL HISTORY: She denies smoking, alcohol, illicit drugs. FAMILY HISTORY: Father committed suicide. Mother lived up to 91 years age. Sister had colon cancer. REVIEW OF SYSTEMS: All systems were reviewed and found to noncontributory except as mentioned in history of present illness. PHYSICAL EXAMINATION: Pulse 56, respiratory rate 18, blood pressure 177/82, 100% saturations on room air. Heart: Regular rate and rhythm. Lungs: Clear to auscultation. Abdomen: Soft, nontender, nondistended. No pedal edema. No musculoskeletal abnormalities. No rash. No signs of meningeal irritation. No tremor. The patient is awake, alert, oriented to person. She has significant expressive aphasia which improved towards end of the visit. She has right-sided upper motor neuron type facial weakness. Tongue and uvula are midline. Extraocular muscles are intact on the left side. She has a right prosthetic eye. Right arm and leg strength is 3- /5. Strength on left side is 5/5. Right plantar is upgoing. Deep tendon reflexes are 1+ throughout in arms and absent in legs. She has decreased cold pinprick vibration sensation in her feet. Gait was not tested. ASSESSMENT: 1. Acute left internal capsule ischemic stroke. 2. Bilateral basal ganglia old lacunar strokes and small-vessel ischemic disease of brain. 3. 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 4. Diabetic peripheral neuropathy. 5. Diabetes, hypertension, and dyslipidemia. PLAN: 1. Carotid ultrasound. 2. Echocardiogram and continue telemetry monitoring. 3. Plavix 75 mg by mouth daily and aspirin 81 mg by mouth daily. 4. Simvastatin 40 mg by mouth daily. 5. Keep systolic blood pressure below 180 and diastolic blood pressure below 100. Edited 09/17/2018 aml
[2018-09-17 09:59] VITALS: BP 150/72
--- NOTE | 2018-09-17 10:36 | IPNPDOC ---
Subjective Date Seen The patient was seen on 09/17/18. Subjective Chief Complaint/HPI Continues to have slurring of speech and facial droop on the right side, continues to have right hemiparesis. No fever or chills, has been able to eat orally and take the oral medications. 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 Mucous membranes dry) Neck Exam: Positive: Supple; Negative: JVD, thyromegaly Chest Exam: Positive: Clear to auscultation, Normal air movement Heart Exam: Positive: Rate Normal, Regular Rhythm, Normal S1, Normal S2; Negative: Murmurs, Rubs Telemetry: Positive: No significant arrhythmia Abdomen Exam: Positive: Normal bowel sounds, Soft; Negative: Tenderness, Hepatospenomegaly Extremity Exam: Negative: Clubbing, Cyanosis, Edema Neuro Exam: Positive: Normal Tone, Other (slurred speech, right facial droop, strength left upper 4/5 left lower 3/5, right upper 3/5 right lower 2/5) Psych Exam: Positive: Anxiety, Other (oriented x 2) Assessment /Plan Assessment 82 year old female from [facility], wheel chair bound, stand to pivot with 1 assist has not walked in 1 to 2 years, 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 It was also noted that she was weaker on the right side than usual and needed 2 max assist to get her back from WC to bed when normally she needs only 1 assist. Last time she was noted to be well is unclear from the [place] notes but it is in the night sometime before 6:00Am. Patient was brought to the ED as a stroke call. Patient admitted to the hospitalist service for Stroke. 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 permissive Hypertension allow SBP of 160 to 180. Dysphagia Nurse noted difficulty in swallowing water swallow evaluation done, cleared for pureed diet and honey thick liquids. As per her advance directive: No feeding tube. Sinus bradycardia on telemetry puse in 40s and 50s unable to get metoprolol at present will reduce dose of Metoprolol Hypertension will maintain SBP 150 to 180 and diastolic 70 to 90 if possible lisinopril bid, metoprolol if pulse rate permits., clonidine tid prn. will try to avoid clonidine if possible to avoid rebound hypertension. If needed will go up on lisinopril. Diabetes sugars controlled will give lispro sliding scale AC hold glipizide as unsure if the patient will be able to eat or not. Hypercholesterolemia continue statin Depression sertraline. CODE: DNR and DNI Plan/VTE VTE Prophylaxis Ordered?: Yes VS, I&O, 24H, Fishbone Vital Signs/I&O Vital Signs Date Time Temp Pulse Resp B/P (MAP) Pulse Ox O2 Delivery O2 Flow Rate FiO2 09/17/18 09:59 150/72 (98) 09/17/18 06:00 97.8 57 18 99 2.0 I&O- Last 24 Hours up to 6 AM 09/17/18 06:00 Intake Total 0 ml Balance 0 ml Laboratory Data 24H LABS Laboratory Tests 2 09/16/18 17:11: Bedside Glucose (Misc Panel) 140H 09/16/18 20:41: Bedside Glucose (Misc Panel) 128H 09/17/18 06:40: Immature Granulocyte % (Auto) 0.3, White Blood Count 6.9, Red Blood Count 3.58L, Hemoglobin 11.2L, Hematocrit 34.6L, Mean Corpuscular Volume 96.6H, Mean Corpuscular Hemoglobin 31.3, Mean Corpuscular Hemoglobin Concent 32.4, Red Cell Distribution Width 13.2, Platelet Count 145L, Neutrophils (%) (Auto) 71.6H, Lymphocytes (%) (Auto) 19.5L, Monocytes (%) (Auto) 7.0H, Eosinophils (%) (Auto) 1.3, Basophils (%) (Auto) 0.3, Neutrophils # (Auto) 4.9, Lymphocytes # (Auto) 1.3L, Monocytes # (Auto) 0.5, Eosinophils # (Auto) 0.1, Basophils # (Auto) 0.0, Nucleated Red Blood Cells % (auto) 0.0, Anion Gap 6L, Glomerular Filtration Rate 44.4, Blood Urea Nitrogen 17, Creatinine 1.23, Sodium Level 142, Potassium Level 4.0, Chloride Level 107, Carbon Dioxide Level 29, Calcium Level 8.6L CBC/BMP Laboratory Tests 09/17/18 06:40 Red Blood Count 3.58 L, Mean Corpuscular Volume 96.6 H, Mean Corpuscular Hem oglobin 31.3, Mean Corpuscular Hemoglobin Concent 32.4, Red Cell Distribution Width 13.2, Neutrophils (%) (Auto) 71.6 H, Lymphocytes (%) (Auto) 19.5 L, Monocytes (%) (Auto) 7.0 H, Eosinophils (%) (Auto) 1.3, Basophils (%) (Auto) 0.3, Neutrophils # (Auto) 4.9, Lymphocytes # (Auto) 1.3 L, Monocytes # (Auto) 0.5, Eosinophils # (Auto) 0.1, Basophils # (Auto) 0.0, Calcium Level 8.6 L RADHA DODSON MD Sep 17, 2018 10:36
[2018-09-17] MEDS ORDERED: LISINOPRIL 5 MG TAB PO ONE (12:00)
[2018-09-17 14:00] VITALS: BP 140/64
[2018-09-17] MEDS: SIMVASTATIN 40 MG TAB PO SCH (21:13)
[2018-09-17 22:00] VITALS: BP 150/76
[2018-09-18] MEDS: cloNIDine 0.1 MG TAB PO SCH (05:54)
[2018-09-18 06:00] VITALS: BP 170/62
[2018-09-18 06:32] LABS: BASO % 0.4 % (0.0-1.0); EOS # 0.1 10^3/uL (0.0-0.50); EOS % 0.9 % (0.0-3.0); HEMATOCRIT 34.6 % (36.0-47.0); HEMOGLOBIN 11.3 g/dl (12.0-15.5); LYMPH # 1.3 10^3/uL (1.5-4.5); LYMPH % 17.8 % (24.0-44.0); MEAN CORPUSCULAR HEMOGLOBIN 32.5 pg (27.0-33.0); MEAN CORPUSCULAR HGB CONC 32.7 g/dl (32.0-36.5); MEAN CORPUSCULAR VOLUME 99.4 fl (80.0-96.0); MONO # 0.5 10^3/uL (0.0-0.8); MONO % 6.8 % (0.0-5.0); NEUTROPHILS # 5.4 10^3/uL (1.8-7.7); NEUTROPHILS % 73.6 % (36.0-66.0); PLATELET COUNT, AUTOMATED 136 10^3/uL (150-450); RED BLOOD COUNT 3.48 10^6/uL (4.00-5.40); WHITE BLOOD COUNT 7.4 10^3/uL (4.0-10.0)
[2018-09-18 06:49] LABS: CALCIUM LEVEL 8.2 MG/DL (8.8-10.2); CREATININE FOR GFR 1.31 MG/DL (0.55-1.30); GLOMERULAR FILTRATION RATE 41.3 (>32); POTASSIUM SERUM 4.1 MEQ/L (3.5-5.1)
--- NOTE | 2018-09-18 08:15 | ECHO ---
DATE OF PROCEDURE: 09/17/2018 REFERRING PHYSICIAN: Dr. Tami Swanson. INDICATION: Acute stroke. HEIGHT: 65 inches. WEIGHT: 81 kg. 2D MEASUREMENTS: Ventricular septum - 0.93 cm Posterior wall - 1.13 cm Left ventricle diastole - 4.7 cm Aortic annulus - 1.8 cm Aortic root - 3.0 cm Left atrium - 2.7 cm Inferior vena cava - 1.6 cm DOPPLER MEASUREMENTS: Mild aortic regurgitation. Aortic valve velocity 159 cm/s LVOT velocity - 123 cm/s LVOT VTI - 27.7 cm/s Trace mitral regurgitation. Mitral E velocity 75.2 cm/s Mitral A velocity 86.8 cm/s Mild tricuspid regurgitation. Estimated right ventricle systolic pressure 40-45 mmHg. Estimated right atrial pressure of 5-10 mmHg MITRAL ANNULAR TISSUE DOPPLER: E prime lateral 3.3 cm/s E prime septal 3.1 cm/s DESCRIPTION: The rhythm was sinus bradycardia. Images quality was fair. No pericardial effusion. This is a 2D, M-mode, color flow Doppler and pulse wave Doppler examination and includes mitral annular tissue Doppler. CONCLUSIONS: 1. Normal left ventricle internal dimensions and wall thickness. Normal regional LV wall motion and wall thickening. Normal LV systolic function. LVEF 75% by visual estimate. Grade 1 LV diastolic dysfunction (impaired relaxation filling pattern). 2. Suggestive of moderate elevation of estimated right ventricle systolic pressure (40-45 mmHg). Mild tricuspid regurgitation. Normal right ventricle size and systolic function. 3. Very mild aortic valve sclerosis of a three-cuspid aortic valve. Mild aortic regurgitation. 4. Otherwise normal echocardiogram Doppler findings.
[2018-09-18] MEDS: HumaLOG INSULIN (NovoLOG) PER UNIT SC SCH ×3 (08:29→16:55)
[2018-09-18] MEDS: ENOXAPARIN 30 MG/0.3 ML SYR (J1650) SC SCH (08:29)
[2018-09-18] MEDS: ASPIRIN 81 MG ENTERIC TAB PO SCH (08:29)
[2018-09-18] MEDS: LISINOPRIL 5 MG TAB PO SCH ×2 (08:29→20:47)
[2018-09-18] MEDS: CLOPIDOGREL 75 MG TAB PO SCH (08:29)
[2018-09-18] MEDS: OMEPRAZOLE 20 MG CAP PO SCH ×2 (08:29→20:47)
[2018-09-18] MEDS: SERTRALINE 100 MG TAB PO SCH (08:30)
[2018-09-18] MEDS ORDERED: METOPROLOL SUCC *XL* 25MG TAB (TopROL *XL*) PO SCH (09:00)
--- NOTE | 2018-09-18 12:32 | IPNPDOC ---
Subjective Date Seen The patient was seen on 09/18/18. Subjective Chief Complaint/HPI Does not offer any complaints, following commands, continues to have right hemiparesis. Alert and awake oriented x 2. Tolerating current diet. 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 Mucous membranes dry) Neck Exam: Positive: Supple; Negative: JVD, thyromegaly Chest Exam: Positive: Clear to auscultation, Normal air movement Heart Exam: Positive: Rate Normal, Regular Rhythm, Normal S1, Normal S2; Negative: Murmurs, Rubs Telemetry: Positive: No significant arrhythmia Abdomen Exam: Positive: Normal bowel sounds, Soft; Negative: Tenderness, Hepatospenomegaly Extremity Exam: Negative: Clubbing, Cyanosis, Edema Neuro Exam: Positive: Normal Tone, Other (slurred speech, right facial droop, strength left upper 4/5 left lower 3/5, right upper 3/5 right lower 2/5) Psych Exam: Positive: Anxiety, Other (oriented x 2) Assessment /Plan Assessment 82 year old female from [facility], wheel chair bound, stand to pivot with 1 assist has not walked in 1 to 2 years, 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 It was also noted that she was weaker on the right side than usual and needed 2 max assist to get her back from WC to bed when normally she needs only 1 assist. Last time she was no nelli to be well is unclear from the [place] notes but it is in the night sometime before 6:00Am. Patient was brought to the ED as a stroke call. Patient admitted to the hospitalist service for Stroke. 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 permissive Hypertension allow SBP of 160 to 180. Dysphagia Nurse noted difficulty in swallowing water swallow evaluation done, cleared for pureed diet and honey thick liquids. As per her advance directive: No feeding tube. Sinus bradycardia on telemetry pulse in 50s after stopping the metoprolol. Hypertension will maintain SBP 150 to 180 and diastolic 70 to 90 if possible lisinopril bid, metoprolol if pulse rate permits., clonidine tid prn. will try to avoid clonidine if possible to avoid rebound hypertension. If needed will go up on lisinopril. Diabetes sugars controlled will give lispro sliding scale AC hold glipizide as unsure if the patient will be able to eat or not. Hypercholesterolemia continue statin Depression sertraline. CODE: DNR and DNI Plan/VTE VTE Prophylaxis Ordered?: Yes VS, I&O, 24H, Fishbone Vital Signs/I&O Vital Signs Date Time Temp Pulse Resp B/P (MAP) Pulse Ox O2 Delivery O2 Flow Rate FiO2 09/18/18 09:00 2.0 09/18/18 08:30 60 129/98 09/18/18 06:00 96.2 18 96 I&O- Last 24 Hours up to 6 AM 09/18/18 06:00 Intake Total 320 ml Balance 320 ml Laboratory Data 24H LABS Laboratory Tests 2 09/17/18 12:45: Bedside Glucose (Misc Panel) 137H 09/17/18 17:03: Bedside Glucose (Misc Panel) 119H 09/18/18 05:38: Immature Granulocyte % (Auto) 0.5, White Blood Count 7.4, Red Blood Count 3.48L, Hemoglobin 11.3L, Hematocrit 34.6L, Mean Corpuscular Volume 99.4H, Mean Corpuscular Hemoglobin 32.5, Mean Corpuscular Hemoglobin Concent 32.7, Red Cell Distribution Width 13.2, Platelet Count 136L, Neutrophils (%) (Auto) 73.6H, Lymphocytes (%) (Auto) 17.8L, Monocytes (%) (Auto) 6.8H, Eosinophils (%) (Auto) 0.9, Basophils (%) (Auto) 0.4, Neutrophils # (Auto) 5.4, Lymphocytes # (Auto) 1.3L, Monocytes # (Auto) 0.5, Eosinophils # (Auto) 0.1, Basophils # (Auto) 0.0, Nucleated Red Blood Cells % (auto) 0.0, Anion Gap 6L, Glomerular Filtration Rate 41.3, Blood Urea Nitrogen 20H, Creatinine 1.31H, Sodium Level 142, Potassium Level 4.1, Chloride Level 107, Carbon Dioxide Level 29, Calcium Level 8.2L 09/18/18 11:38: Bedside Glucose (Misc Panel) 133H CBC/BMP Laboratory Tests 09/18/18 05:38 Red Blood Count 3.48 L, Mean Corpuscular Volume 99.4 H, Mean Corpuscular Hemoglobin 32.5, Mean Corpuscular Hemoglobin Concent 32.7, Red Cell Distribution Width 13.2, Neutrophils (%) (Auto) 73.6 H, Lymphocytes (%) (Auto) 17.8 L, Monocytes (%) (Auto) 6.8 H, Eosinophils (%) (Auto) 0.9, Basophils (%) (Auto) 0.4, Neutrophils # (Auto) 5.4, Lymphocytes # (Auto) 1.3 L, Monocytes # (Auto) 0.5, Eosinophils # (Auto) 0.1, Basophils # (Auto) 0.0, Calcium Level 8.2 L RADHA DODSON MD Sep 18, 2018 12:32
[2018-09-18 14:00] VITALS: BP 152/62
[2018-09-18] MEDS: SIMVASTATIN 40 MG TAB PO SCH (20:47)
[2018-09-18 22:00] VITALS: BP 168/76
[2018-09-19 06:00] VITALS: BP 180/76
[2018-09-19 06:04] LABS: BASO % 0.3 % (0.0-1.0); EOS # 0.1 10^3/uL (0.0-0.50); HEMATOCRIT 34.3 % (36.0-47.0); HEMOGLOBIN 11.1 g/dl (12.0-15.5); LYMPH # 1.3 10^3/uL (1.5-4.5); LYMPH % 18.5 % (24.0-44.0); MEAN CORPUSCULAR HEMOGLOBIN 32.2 pg (27.0-33.0); MEAN CORPUSCULAR HGB CONC 32.4 g/dl (32.0-36.5); MEAN CORPUSCULAR VOLUME 99.4 fl (80.0-96.0); MONO # 0.5 10^3/uL (0.0-0.8); NEUTROPHILS # 5.3 10^3/uL (1.8-7.7); NEUTROPHILS % 72.8 % (36.0-66.0); PLATELET COUNT, AUTOMATED 128 10^3/uL (150-450); RED BLOOD COUNT 3.45 10^6/uL (4.00-5.40); WHITE BLOOD COUNT 7.2 10^3/uL (4.0-10.0)
[2018-09-19] MEDS: LISINOPRIL 5 MG TAB PO SCH (06:16)
[2018-09-19 06:20] LABS: CALCIUM LEVEL 8.7 MG/DL (8.8-10.2); CREATININE FOR GFR 1.15 MG/DL (0.55-1.30); POTASSIUM SERUM 3.8 MEQ/L (3.5-5.1)
[2018-09-19] MEDS: ENOXAPARIN 30 MG/0.3 ML SYR (J1650) SC SCH (08:17)
[2018-09-19] MEDS: CLOPIDOGREL 75 MG TAB PO SCH (08:17)
[2018-09-19] MEDS: ASPIRIN 81 MG ENTERIC TAB PO SCH (08:17)
[2018-09-19] MEDS: SERTRALINE 100 MG TAB PO SCH (08:17)
[2018-09-19] MEDS: HumaLOG INSULIN (NovoLOG) PER UNIT SC SCH ×3 (08:17→18:01)
[2018-09-19] MEDS: OMEPRAZOLE 20 MG CAP PO SCH ×2 (08:18→20:05)
[2018-09-19 08:42] VITALS: BP 158/71
--- NOTE | 2018-09-19 08:56 | REP ---
Duplex carotid sonography: History: CVA. Findings: Antegrade flow was observed in both vertebral arteries. Right carotid: The right common carotid artery shows mild soft plaquing. There is moderate mixed plaquing in the bulb, proximal ICA and proximal ECA on the right side on two-dimensional scanning. Color flow and spectral Doppler interrogation are unremarkable however. Velocity chart right carotid: PSV EDV Right CCA 81.0 cm/s Right ICA 96.0 11.0 Right ECA 110.0 Right ICA/CCA ratio normal 1.2. Impression: 16-49% category narrowing in the right ICA by Doppler velocity criteria. Left carotid: The left common carotid artery shows mild soft plaquing. There is moderate mixed plaquing in the bulb and proximal ICA and proximal ECA on the left side on two-dimensional scanning. Color flow and spectral Doppler interrogation are unremarkable. Velocity chart left carotid: PSV EDV Left CCA 83.0 cm/s Left ICA 116.0 18.0 Left ECA 69.0 Left ICA/CCA ratio 1.4. Impression: 16-49% category narrowing in the left ICA by Doppler velocity criteria. Electronically Signed by Rickie Castrejon MD 09/19/2018 09:13 A
[2018-09-19] MEDS ORDERED: CLOP75TA2 PO (09:06)
[2018-09-19] MEDS ORDERED: LISI10TA4 PO (09:06)
[2018-09-19] MEDS ORDERED: FLEET ENEMA PR PRN (09:15)
[2018-09-19] MEDS ORDERED: MOM 30ML SUSPENSION UDC PO ONE (10:00)
[2018-09-19] MEDS ORDERED: BISACODYL 5 MG TAB PO ONE (10:00)
--- NOTE | 2018-09-19 11:28 | DS.PDOC ---
Discharge Summary General Date of Admission Sep 16, 2018 at 13:38 Date of Discharge 09/19/18 Discharge Summary PROCEDURES PERFORMED DURING STAY: [None]. 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 COMPLICATIONS/CHIEF COMPLAINT: Stroke. 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 It was also noted that she was weaker on the right side than usual and n eeded 2 max assist to get her back from WC to bed when normally she needs only 1 assist. Last time she was noted to be well is unclear from the [place] notes but it is in the night sometime before 6:00Am. Patient was brought to the ED as a stroke call. Patient admitted to the hospitalist service for Stroke. 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 Dysphagia Nurse noted difficulty in swallowing water swallow evaluation done, cleared for pureed diet and honey thick liquids. As per her advance directive: No feeding tube. Sinus bradycardia on telemetry pulse in 40s stopped metoprolol. Now in 60s. Hypertension will increase lisinopril to 10 bid stopped metoprolol due to bradycardia in 40s. Diabetes sugars controlled restart glipizide Hypercholesterolemia continue statin Depression sertraline. CODE: DNR and DNI DISCHARGE MEDICATIONS: Please see below. ALLERGIES: Please see below. PHYSICAL EXAMINATION ON DISCHARGE: VITAL SIGNS: Please see below. 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 Mucous membranes dry) Neck Exam: Positive: Supple; Negative: JVD, thyromegaly Chest Exam: Positive: Clear to auscultation, Normal air movement Heart Exam: Positive: Rate Normal, Regular Rhythm, Normal S1, Normal S2; Negative: Murmurs, Rubs Telemetry: Positive: No significant arrhythmia Abdomen Exam: Positive: Normal bowel sounds, Soft; Negative: Tenderness, Hepatosplenomegaly Extremity Exam: Negative: Clubbing, Cyanosis, Edema Neuro Exam: Positive: Normal Tone, Other (slurred speech, right facial droop, strength left upper 4/5 left lower 3/5, right upper 3/5 right lower 2/5) Psych Exam: Positive: Anxiety, Other (oriented x 2) LABORATORY DATA: Please see below. ACTIVITY: [As tolerated]. DIET: Pureed, Honey thick liquids DISCHARGE PLAN: SSV DISPOSITION: . DISCHARGE INSTRUCTIONS: Follow up with Dr Balderrama in 1 month Follow up with MD at [place] DISCHARGE CONDITION: [Stable]. TIME SPENT ON DISCHARGE: 35 minutes. Vital Signs/I&Os Vital Signs Date Time Temp Pulse Resp B/P (MAP) Pulse Ox O2 Delivery O2 Flow Rate FiO2 09/19/18 08:42 158/71 (100) 95 09/19/18 08:15 2.0 09/19/18 06:00 97.6 56 18 I&O- Last 24 Hours up to 6 AM 09/19/18 06:00 Intake Total 1800 ml Balance 1800 ml Laboratory Data Labs 24H Laboratory Tests 2 09/18/18 11:38: Bedside Glucose (Misc Panel) 133H 09/18/18 16:50: Bedside Glucose (Misc Panel) 100 09/19/18 05:31: Immature Granulocyte % (Auto) 0.4, White Blood Count 7.2, Red Blood Count 3.45L, Hemoglobin 11.1L, Hematocrit 34.3L, Mean Corpuscular Volume 99.4H, Mean Corpuscular Hemoglobin 32.2, Mean Corpuscular Hemoglobin Concent 32.4, Red Cell Distribution Width 13.1, Platelet Count 128L, Neutrophils (%) (Auto) 72.8H, Lymphocytes (%) (Auto) 18.5L, Monocytes (%) (Auto) 7.0H, Eosinophils (%) (Auto) 1.0, Basophils (%) (Auto) 0.3, Neutrophils # (Auto) 5.3, Lymphocytes # (Auto) 1.3L, Monocytes # (Auto) 0.5, Eosinophils # (Auto) 0.1, Basophils # (Auto) 0.0, Nucleated Red Blood Cells % (auto) 0.0, Anion Gap 5L, Glomerular Filtration Rate 48.0, Blood Urea Nitrogen 16, Creatinine 1.15, Sodium Level 141, Potassium Level 3.8, Chloride Level 107, Carbon Dioxide Level 29, Calcium Level 8.7L CBC/BMP Laboratory Tests 09/19/18 05:31 Red Blood Count 3.45 L, Mean Corpuscular Volume 99.4 H, Mean Corpuscular Hemoglobin 32.2, Mean Corpuscular Hemoglobin Concent 32.4, Red Cell Distribution Width 13.1, Neutrophils (%) (Auto) 72.8 H, Lymphocytes (%) (Auto) 18.5 L, Monocytes (%) (Auto) 7.0 H, Eosinophils (%) (Auto) 1.0, Basophils (%) (Auto) 0.3, Neutrophils # (Auto) 5.3, Lymphocytes # (Auto) 1.3 L, Monocytes # (Auto) 0.5, Eosinophils # (Auto) 0.1, Basophils # (Auto) 0.0, Calcium Level 8.7 L FSBS Laboratory Tests Test 09/18/18 11:38 09/18/18 16:50 Range/Units Bedside Glucose (Misc Panel) 133 100 83-110 MG/DL Discharge Medications Scheduled Aspirin (Ecotrin) 81 Mg Tablet.dr, 81 MG PO DAILY, (Reported) Bimatoprost (Lumigan) 0.01% 2.5ML Drops, 1 DROP OS QHS, (Reported) Clopidogrel Bisulfate (Clopidogrel) 75 Mg Tablet, 75 MG PO DAILY Docusate Sodium (Colace) 100 Mg Capsule, 100 MG PO QHS, (Reported) Furosemide (Furosemide) 20 Mg Tablet, 20 MG PO DAILY, (Reported) Glipizide (Glipizide) 5 Mg Tablet, 5 MG PO DAILY, (Reported) Glipizide (Glipizide) 5 Mg Tablet, 2.5 MG PO QHS, (Reported) Lisinopril (Lisinopril) 10 Mg Tablet, 10 MG PO BID Omeprazole (Omeprazole) 40 Mg Capsule.dr, 40 MG PO BID, (Reported) Sennosides/Docusate Sodium (Senna-S Tablet) 1 Each Tablet, 2 TAB PO QHS, (Repo rted) Sertraline HCl (Sertraline HCl) 100 Mg Tablet, 100 MG PO DAILY, (Reported) Simvastatin (Simvastatin) 40 Mg Tablet, 40 MG PO QHS, (Reported) Scheduled PRN Acetaminophen (Tylenol) 325 Mg Tablet, 650 MG PO Q4H PRN for PAIN, (Reported) Bisacodyl (Dulcolax) 10 Mg Supp.rect, 10 MG ID DAILY PRN for CONSTIPATION, (Reported) Magnesium Hydroxide (Milk of Magnesia) 400 Mg/5 Ml Oral.susp, 30 ML PO DAILY PRN for CONSTIPATION, (Reported) Ondansetron HCl (Zofran) 4 Mg Tablet, 4 MG PO Q6H PRN for NAUSEA OR VOMITING, (Reported) Sodium Phosphate,[place]-Dibasic (Enema) 133 Ml Enema, 1 RADHA ID DAILY PRN for CONSTIPATION, (Reported) Allergies Coded Allergies: No Known Allergies (Verified , 10/16/02) RADHA DODSON MD Sep 19, 2018 11:28
[2018-09-19 14:00] VITALS: BP 166/76
[2018-09-19] MEDS: LISINOPRIL 10 MG TAB PO SCH (20:06)
[2018-09-19] MEDS: SIMVASTATIN 40 MG TAB PO SCH (20:07)
[2018-09-19 22:00] VITALS: BP 170/78
[2018-09-20 06:00] VITALS: BP 180/82
[2018-09-20 06:42] LABS: BASO % 0.4 % (0.0-1.0); EOS # 0.1 10^3/uL (0.0-0.50); EOS % 1.1 % (0.0-3.0); HEMATOCRIT 34.6 % (36.0-47.0); HEMOGLOBIN 11.5 g/dl (12.0-15.5); LYMPH # 1.3 10^3/uL (1.5-4.5); LYMPH % 18.2 % (24.0-44.0); MEAN CORPUSCULAR HEMOGLOBIN 32.5 pg (27.0-33.0); MEAN CORPUSCULAR HGB CONC 33.2 g/dl (32.0-36.5); MEAN CORPUSCULAR VOLUME 97.7 fl (80.0-96.0); MONO # 0.5 10^3/uL (0.0-0.8); MONO % 6.9 % (0.0-5.0); NEUTROPHILS # 5.3 10^3/uL (1.8-7.7); NEUTROPHILS % 72.8 % (36.0-66.0); PLATELET COUNT, AUTOMATED 139 10^3/uL (150-450); RED BLOOD COUNT 3.54 10^6/uL (4.00-5.40); WHITE BLOOD COUNT 7.3 10^3/uL (4.0-10.0)
[2018-09-20] MEDS: LISINOPRIL 10 MG TAB PO SCH (06:51)
[2018-09-20 07:10] LABS: CALCIUM LEVEL 8.4 MG/DL (8.8-10.2); CREATININE FOR GFR 1.04 MG/DL (0.55-1.30); GLOMERULAR FILTRATION RATE 53.9 (>32); POTASSIUM SERUM 3.7 MEQ/L (3.5-5.1)
[2018-09-20] MEDS: CLOPIDOGREL 75 MG TAB PO SCH (08:10)
[2018-09-20] MEDS: ASPIRIN 81 MG ENTERIC TAB PO SCH (08:10)
[2018-09-20] MEDS: SERTRALINE 100 MG TAB PO SCH (08:10)
[2018-09-20] MEDS: OMEPRAZOLE 20 MG CAP PO SCH (08:11)
[2018-09-20] MEDS: HumaLOG INSULIN (NovoLOG) PER UNIT SC SCH (08:11)
[2018-09-20] MEDS: ENOXAPARIN 30 MG/0.3 ML SYR (J1650) SC SCH (08:11)
[2018-09-20] MEDS ORDERED: amLODIPine 5 MG TAB PO ONE (09:00)
[2018-09-20 09:01] VITALS: BP 180/84
[2018-09-20 10:02] VITALS: BP 148/80
--- NOTE | 2018-09-20 16:15 | DS.PDOC ---
Discharge Summary General Date of Admission Sep 16, 2018 at 13:38 Date of Discharge September 20, 2018 ADDENDUM TO DISCHARGE SUMMARY Discharge Summary Pt was not discharged yesterday due to transportation issues with oxygen. Pt had no medical issues overnight, but was found to have slightly elevated blood pressure of 180 mmHg this morning without c/o headache, blurred vision, or new neurologic deficits. Pt was given one dose of 5mg norvasc x 1, and was discharged in stable condition. no other medication changes were made on her discharge orders. Vital Signs/I&Os Vital Signs Date Time Temp Pulse Resp B/P (MAP) Pulse Ox O2 Delivery O2 Flow Rate FiO2 09/20/18 10:02 68 148/80 (102) 09/20/18 06:00 96.4 18 95 09/19/18 08:15 2.0 I&O- Last 24 Hours up to 6 AM 09/20/18 06:00 Intake Total 960 ml Output Total 250 ml Balance 710 ml Laboratory Data Labs 24H Laboratory Tests 2 09/19/18 16:50: Bedside Glucose (Misc Panel) 114H 09/20/18 05:25: Immature Granulocyte % (Auto) 0.6, White Blood Count 7.3, Red Blood Count 3.54L, Hemoglobin 11.5L, Hematocrit 34.6L, Mean Corpuscular Volume 97.7H, Mean Corpuscular Hemoglobin 32.5, Mean Corpuscular Hemoglobin Concent 33.2, Red Cell Distribution Width 13.1, Platelet Count 139L, Neutrophils (%) (Auto) 72.8H, Lymphocytes (%) (Auto) 18.2L, Monocytes (%) (Auto) 6.9H, Eosinophils (%) (Auto) 1.1, Basophils (%) (Auto) 0.4, Neutrophils # (Auto) 5.3, Lymphocytes # (Auto) 1.3L, Monocytes # (Auto) 0.5, Eosinophils # (Auto) 0.1, Basophils # (Auto) 0.0, Nucleated Red Blood Cells % (auto) 0.0, Anion Gap 8, Glomerular Filtration Rate 53.9, Blood Urea Nitrogen 15, Creatinine 1.04, Sodium Level 142, Potassium Level 3.7, Chloride Level 106, Carbon Dioxide Level 28, Calcium Level 8.4L CBC/BMP Laboratory Tests 09/20/18 05:25 Red Blood Count 3.54 L, Mean Corpuscular Volume 97.7 H, Mean Corpuscular Hemoglobin 32.5, Mean Corpuscular Hemoglobin Concent 33.2, Red Cell Distribution Width 13.1, Neutrophils (%) (Auto) 72.8 H, Lymphocytes (%) (Auto) 18.2 L, Monocytes (%) (Auto) 6.9 H, Eosinophils (%) (Auto) 1.1, Basophils (%) (Auto) 0.4, Neutrophils # (Auto) 5.3, Lymphocytes # (Auto) 1.3 L, Monocytes # (Auto) 0.5, Eosinophils # (Auto) 0.1, Basophils # (Auto) 0.0, Calcium Level 8.4 L FSBS Laboratory Tests Test 09/19/18 16:50 Range/Units Bedside Glucose (Misc Panel) 114 83-110 MG/DL Discharge Medications Scheduled Aspirin (Ecotrin) 81 Mg Tablet.dr, 81 MG PO DAILY, (Reported) Bimatoprost (Lumigan) 0.01% 2.5ML Drops, 1 DROP OS QHS, (Reported) Clopidogrel Bisulfate (Clopidogrel) 75 Mg Tablet, 75 MG PO DAILY Docusate Sodium (Colace) 100 Mg Capsule, 100 MG PO QHS, (Reported) Furosemide (Furosemide) 20 Mg Tablet, 20 MG PO DAILY, (Reported) Glipizide (Glipizide) 5 Mg Tablet, 5 MG PO DAILY, (Reported) Glipizide (Glipizide) 5 Mg Tablet, 2.5 MG PO QHS, (Reported) Lisinopril (Lisinopril) 10 Mg Tablet, 10 MG PO BID Omeprazole (Omeprazole) 40 Mg Capsule.dr, 40 MG PO BID, (Reported) Sennosides/Docusate Sodium (Senna-S Tablet) 1 Each Tablet, 2 TAB PO QHS, (Reported) Sertraline HCl (Sertraline HCl) 100 Mg Tablet, 100 MG PO DAILY, (Reported) Simvastatin (Simvastatin) 40 Mg Tablet, 40 MG PO QHS, (Reported) Scheduled PRN Acetaminophen (Tylenol) 325 Mg Tablet, 650 MG PO Q4H PRN for PAIN, (Reported) Bisacodyl (Dulcolax) 10 Mg Supp.rect, 10 MG [place] DAILY PRN for CONSTIPATION, (Reported) Magnesium Hydroxide (Milk of Magnesia) 400 Mg/5 Ml Oral.susp, 30 ML PO DAILY PRN for CONSTIPATION, (Reported) Ondansetron HCl (Zofran) 4 Mg Tablet, 4 MG PO Q6H PRN for NAUSEA OR VOMITING, (Reported) Sodium Phosphate,[place]-Dibasic (Enema) 133 Ml Enema, 1 RADHA [place] DAILY PRN for CONSTIPATION, (Reported) Allergies Coded Allergies: No Known Allergies (Verified , 10/16/02) BLANCA LOPEZ MD Sep 20, 2018 16:15
== END 2018-09-20 10:23 | DRG 65 ==
LOC: M ED 09:07 → EDBD 09:07 → M ED INP 13:38 → M MSPAV 18:50
PROVIDERS: ADMIT Internal Medicine Nephrology; ATTEND General Practice
DX: I63.9 Cerebral infarction, unspecified (principal); G90.3 Multi-system degeneration of the autonomic nervous system; K86.1 Other chronic pancreatitis; I69.351 Hemiplegia and hemiparesis following cerebral infarction affecting right dominant side; Z79.82 Long term (current) use of aspirin; Z79.899 Other long term (current) drug therapy; R29.6 Repeated falls; F32.9 Major depressive disorder, single episode, unspecified; I11.0 Hypertensive heart disease with heart failure; E11.51 Type 2 diabetes mellitus with diabetic peripheral angiopathy without gangrene; E78.5 Hyperlipidemia, unspecified; M19.90 Unspecified osteoarthritis, unspecified site; I50.9 Heart failure, unspecified; L57.0 Actinic keratosis; R53.83 Other fatigue; Z66 Do not resuscitate; I69.391 Dysphagia following cerebral infarction

== ENCOUNTER → 2018-09-27 | Outpatient (REF) | payer MEDICARE ==
[~2018-09-27] MED LIST changes: +ACET-907 PO; +BIMA01SOL OS; +CLOP75TA2 PO; +COLA100C5 PO; +DULC10SU2 PR; +ECOT81TA5 PO; +ENEMENE PR; +FURO20TA2 PO; +GLIP5TAB8 PO; +LISI10TA4 PO; +METO1TAB7 PO; +MILKSUS7 PO; +OMEP40CA2 PO; +SENN-23 PO; +SERT-138 PO; +SIMV40TA2 PO; +ZOFR4TAB16 PO; -cloNIDine HCL 0.1 MG/24 HR PATCH TOP SCH
[2018-09-27 09:33] LABS: HEMATOCRIT 38.5 % (36.0-47.0); HEMOGLOBIN 12.7 g/dl (12.0-15.5); MEAN CORPUSCULAR HEMOGLOBIN 31.8 pg (27.0-33.0); MEAN CORPUSCULAR VOLUME 96.5 fl (80.0-96.0); PLATELET COUNT, AUTOMATED 156 10^3/uL (150-450); RED BLOOD COUNT 3.99 10^6/uL (4.00-5.40); WHITE BLOOD COUNT 8.9 10^3/uL (4.0-10.0)
[2018-09-27 10:05] LABS: CREATININE FOR GFR 1.26 MG/DL (0.55-1.30); GLOMERULAR FILTRATION RATE 43.2 (>32); POTASSIUM SERUM 4.1 MEQ/L (3.5-5.1)
== END ==
PROVIDERS: ATTEND Physician Assistant
DX: I10 Essential (primary) hypertension (principal)

== ENCOUNTER → 2018-10-10 | Outpatient (CLI) | payer MEDICARE ==
--- NOTE | 2018-10-10 13:59 | NUR ---
Pt seen for Modified Barium Swallow Study s/p CVA with rehabilitative dysphagia therapy ongoing. Pt presents with mild oropharyngeal phase dysphagia as characterized by: penetration of multiple liquid consistencies and delayed initiation of swallow. Pt unable to transfer whole barium tablet with liquid wash. Recommend: Level 2 solids and regular thin liquids. Meds crushed in puree assist. Continue PO trials and upgrade as tolerated. Addendum: 10/10/18 at 1400 by DELON MASON [facility] Amended: Links added.
--- NOTE | 2018-10-12 16:21 | REP ---
COOKIE SWALLOW The procedure was performed under the direct supervision of Dr. Andrew. The procedure was performed with Erin Baker from speech pathology present. 5 ml aliquots of nectar, thin, pudding, fruit, solid, honey and soft solid food was administered. With nectar, thin, fruit and honey consistency barium there is laryngeal penetration. The detailed report of this examination will be provided by speech pathology. 1.7 minutes of fluoroscopy time was utilized for this procedure. Reviewed by EITAN Ruiz 10/11/2018 05:27 P Electronically Signed by Farzad Andrew MD 10/12/2018 04:12 P
== END ==
LOC: M ST 12:01
PROVIDERS: ATTEND Physician Assistant
DX: I69.391 Dysphagia following cerebral infarction (principal); R13.10 Dysphagia, unspecified

== ENCOUNTER → 2018-10-11 | Outpatient (REF) | payer MEDICARE ==
[2018-10-11 10:15] LABS: CALCIUM LEVEL 9.2 MG/DL (8.8-10.2); CREATININE FOR GFR 1.23 MG/DL (0.55-1.30); GLOMERULAR FILTRATION RATE 44.4 (>32); POTASSIUM SERUM 4.1 MEQ/L (3.5-5.1)
== END ==
PROVIDERS: ATTEND Family Medicine
DX: I10 Essential (primary) hypertension (principal)

== ENCOUNTER → 2018-11-01 | Outpatient (REF) ==
[2018-11-01 09:29] LABS: HEMATOCRIT 37.2 % (36.0-47.0); HEMOGLOBIN 12.3 g/dl (12.0-15.5); MEAN CORPUSCULAR HEMOGLOBIN 31.7 pg (27.0-33.0); MEAN CORPUSCULAR HGB CONC 33.1 g/dl (32.0-36.5); MEAN CORPUSCULAR VOLUME 95.9 fl (80.0-96.0); PLATELET COUNT, AUTOMATED 178 10^3/uL (150-450); RED BLOOD COUNT 3.88 10^6/uL (4.00-5.40); WHITE BLOOD COUNT 9.8 10^3/uL (4.0-10.0)
[2018-11-01 09:42] LABS: HEMOGLOBIN A1c 7.1 %
[2018-11-01 09:43] LABS: CALCIUM LEVEL 9.1 MG/DL (8.8-10.2); CREATININE FOR GFR 1.32 MG/DL (0.55-1.30); GLOMERULAR FILTRATION RATE 40.8 (>32); POTASSIUM SERUM 4.1 MEQ/L (3.5-5.1)
[2018-11-01 09:47] LABS: C REACTIVE PROTEIN QUANTITATIV 0.72 MG/DL (0.00-0.30); CHOLESTEROL RISK RATIO 3.687 (<5)
[2018-11-02 14:07] LABS: ANTINUCLEAR ANTIBODIES DIRECT Negative (Negative)
== END ==
PROVIDERS: ATTEND Family Medicine
DX: N18.9 Chronic kidney disease, unspecified (principal)

== ENCOUNTER → 2018-12-16 | Outpatient (CLI) | payer MEDICARE ==
[~2018-12-16] MED LIST changes: +E-Z-GAS II EFFERVESCENT PACKET (SODIUM BICARB./CITRIC ACID/SIMETHICONE) As Ordered ONE; +E-Z-HD 98% w/w 340GM SUSP BTL As Ordered ONE; +E-Z-PAQUE 96% w/w SUSP 176GM BTL As Ordered ONE
--- NOTE | 2018-12-16 16:47 | REP ---
UPPER GI AIR CONTRAST AND SMALL BOWEL FOLLOW THROUGH The procedure was performed under the direct supervision of Dr. Andrew. The images were reviewed with Dr. Andrew The polysomnographic tech film shows no organomegaly or pathological masses. The intestinal gas pattern is non-specific. There are surgical clips noted in the right upper quadrant. Liquid barium was given in the prone oblique position in order to perform a single contrast upper GI examination. Additionally liquid barium was given at the end of the examination in order to perform a small bowel follow through. The oral and pharyngeal stages of deglutition are unremarkable. 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 During esophageal transport there are tertiary waves demonstrated. There is no esophagitis stricture or mucosal ring. There is a sliding hiatal hernia. There is gastroesophageal reflux demonstrated to the level of the thoracic inlet. The stomach is grossly normal. The rugal folds are smooth and regular. There is no evidence of gastritis neoplasm or ulcer disease. The duodenum is grossly normal. The mucosal folds are smooth and regular. There is no evidence of duodenitis pancreatitis peptic ulcer disease or neoplasm. The visualized portion of the proximal small bowel appears normal in course and caliber. The barium column was followed through the small bowel to the level of the terminal ileum. Small bowel transit time is approximately 80 minutes . During fluoroscopy gentle palpation shows all loops are freely movable and pliable. There are no fixed or angulated loops. The small bowel mucosal pattern is normal in course and caliber. There is no transition to suggest a partial small-bowel obstruction. Spot filming of the terminal ileum shows it to be unremarkable. Impression: 1. Cricopharyngeal hypertrophy 2. Tertiary waves. 3. There is a sliding hiatal hernia. There is gastroesophageal reflux demonstrated to the level of the thoracic inlet. 1.9 minutes of fluoro time was utilized for this procedure. Reviewed by EITAN Ruiz 12/16/2018 04:32 P Electronically Signed by Farzad Andrew MD 12/16/2018 04:39 P
== END ==
LOC: M RAD 11:48
PROVIDERS: ATTEND Physician Assistant
DX: R11.10 Vomiting, unspecified (principal); K44.9 Diaphragmatic hernia without obstruction or gangrene; K21.9 Gastro-esophageal reflux disease without esophagitis; J39.2 Other diseases of pharynx

== ENCOUNTER → 2019-01-03 | Outpatient (REF) | payer MEDICARE ==
[~2019-01-03] MED LIST changes: -E-Z-GAS II EFFERVESCENT PACKET (SODIUM BICARB./CITRIC ACID/SIMETHICONE) As Ordered ONE; -E-Z-HD 98% w/w 340GM SUSP BTL As Ordered ONE; -E-Z-PAQUE 96% w/w SUSP 176GM BTL As Ordered ONE
[2019-01-03 11:02] LABS: HEMATOCRIT 34.5 % (36.0-47.0); HEMOGLOBIN 11.2 g/dl (12.0-15.5); MEAN CORPUSCULAR HEMOGLOBIN 31.3 pg (27.0-33.0); MEAN CORPUSCULAR HGB CONC 32.5 g/dl (32.0-36.5); MEAN CORPUSCULAR VOLUME 96.4 fl (80.0-96.0); PLATELET COUNT, AUTOMATED 233 10^3/uL (150-450); RED BLOOD COUNT 3.58 10^6/uL (4.00-5.40); WHITE BLOOD COUNT 10.7 10^3/uL (4.0-10.0)
[2019-01-03 11:20] LABS: CALCIUM LEVEL 8.8 MG/DL (8.8-10.2); CREATININE FOR GFR 1.19 MG/DL (0.55-1.30); POTASSIUM SERUM 4.4 MEQ/L (3.5-5.1)
== END ==
PROVIDERS: ATTEND Family Medicine
DX: I63.9 Cerebral infarction, unspecified (principal); I10 Essential (primary) hypertension

== ENCOUNTER → 2019-02-08 | Outpatient (REF) | payer MEDICARE ==
[~2019-02-08] MED LIST changes: -OMEP40CA2 PO; +OMEP40CA97 PO
[2019-02-08 10:16] LABS: CHOLESTEROL RISK RATIO 3.037 (<5)
== END ==
PROVIDERS: ATTEND Family Medicine
DX: I63.9 Cerebral infarction, unspecified (principal)

== ENCOUNTER → 2019-03-07 | Outpatient (REF) | payer MEDICARE ==
[~2019-03-07] MED LIST changes: -SIMV40TA2 PO; +SIMV40TA20 PO
[2019-03-07 11:15] LABS: HEMOGLOBIN A1c 8.4 %
== END ==
PROVIDERS: ATTEND Family Medicine
DX: E11.9 Type 2 diabetes mellitus without complications (principal)

== ENCOUNTER → 2019-04-20 | Outpatient (REF) | payer MEDICARE ==
[2019-04-20 12:52] LABS: HEMATOCRIT 38.8 % (36.0-47.0); HEMOGLOBIN 12.4 g/dl (12.0-15.5); MEAN CORPUSCULAR HEMOGLOBIN 31.6 pg (27.0-33.0); MEAN CORPUSCULAR VOLUME 98.7 fl (80.0-96.0); PLATELET COUNT, AUTOMATED 176 10^3/uL (150-450); RED BLOOD COUNT 3.93 10^6/uL (4.00-5.40); WHITE BLOOD COUNT 9.7 10^3/uL (4.0-10.0)
[2019-04-20 13:23] LABS: CREATININE FOR GFR 1.2 MG/DL (0.55-1.30); GLOMERULAR FILTRATION RATE 45.6 (>32); POTASSIUM SERUM 4.1 MEQ/L (3.5-5.1)
== END ==
PROVIDERS: ATTEND Family Medicine
DX: I63.9 Cerebral infarction, unspecified (principal)

== ENCOUNTER → 2019-05-10 | Outpatient (REF) | payer MEDICARE ==
[2019-05-10 15:29] LABS: HEMATOCRIT 33.9 % (36.0-47.0); HEMOGLOBIN 11.5 g/dl (12.0-15.5); MEAN CORPUSCULAR HEMOGLOBIN 32.7 pg (27.0-33.0); MEAN CORPUSCULAR HGB CONC 33.9 g/dl (32.0-36.5); MEAN CORPUSCULAR VOLUME 96.3 fl (80.0-96.0); PLATELET COUNT, AUTOMATED 145 10^3/uL (150-450); RED BLOOD COUNT 3.52 10^6/uL (4.00-5.40); WHITE BLOOD COUNT 9.3 10^3/uL (4.0-10.0)
[2019-05-10 15:50] LABS: ALBUMIN 3.3 GM/DL (3.2-5.2); BILIRUBIN,TOTAL 0.5 MG/DL (0.2-1.0); CALCIUM LEVEL 8.6 MG/DL (8.8-10.2); CREATININE FOR GFR 1.15 MG/DL (0.55-1.30); GLOMERULAR FILTRATION RATE 47.9 (>32); POTASSIUM SERUM 3.1 MEQ/L (3.5-5.1); TOTAL PROTEIN 6.9 GM/DL (6.4-8.2)
--- NOTE | 2019-05-10 16:28 | REPPI ---
CHEST, PORTABLE: AP portable view of the chest is performed. COMPARISON: 11/25/2017. There is cardiomegaly and vascular congestion. Diffuse increased interstitial markings are present. Findings suggest diffuse interstitial infiltrates and possibly interstitial edema. The mediastinal silhouette appears somewhat magnified. There may be some mild patchy alveolar infiltrates in the left lung base behind the heart. IMPRESSION: Cardiomegaly with vascular congestion. There are diffuse bilateral infiltrates with suspected interstitial edema. There may be some mild patchy alveolar infiltrates in the left lung base behind the heart. Electronically Signed by Farzad Andrew MD 05/11/2019 07:57 P
== END ==
PROVIDERS: ATTEND Family Medicine
DX: R05 Cough (principal); I51.7 Cardiomegaly; R91.8 Other nonspecific abnormal finding of lung field

== ENCOUNTER → 2019-05-11 | Outpatient (REF) | payer MEDICARE ==
[2019-05-11 12:22] LABS: HEMOGLOBIN 10.1 g/dl (12.0-15.5); MEAN CORPUSCULAR HEMOGLOBIN 31.5 pg (27.0-33.0); MEAN CORPUSCULAR HGB CONC 31.6 g/dl (32.0-36.5); MEAN CORPUSCULAR VOLUME 99.7 fl (80.0-96.0); PLATELET COUNT, AUTOMATED 111 10^3/uL (150-450); RED BLOOD COUNT 3.21 10^6/uL (4.00-5.40); WHITE BLOOD COUNT 5.6 10^3/uL (4.0-10.0)
[2019-05-11 12:49] LABS: CALCIUM LEVEL 8.1 MG/DL (8.8-10.2); CREATININE FOR GFR 1.01 MG/DL (0.55-1.30); GLOMERULAR FILTRATION RATE 55.6 (>32)
== END ==
PROVIDERS: ATTEND Family Medicine
DX: I50.9 Heart failure, unspecified (principal)

== ENCOUNTER → 2019-05-12 | Outpatient (REF) ==
[2019-05-12 11:14] LABS: CALCIUM LEVEL 8.4 MG/DL (8.8-10.2); CREATININE FOR GFR 0.96 MG/DL (0.55-1.30); GLOMERULAR FILTRATION RATE 58.9 (>32); POTASSIUM SERUM 2.8 MEQ/L (3.5-5.1)
== END ==
PROVIDERS: ATTEND Family Medicine
DX: E87.6 Hypokalemia (principal)

== ENCOUNTER → 2019-05-13 | Outpatient (REF) ==
[2019-05-13 12:11] LABS: CALCIUM LEVEL 8.4 MG/DL (8.8-10.2); CREATININE FOR GFR 1.03 MG/DL (0.55-1.30); GLOMERULAR FILTRATION RATE 54.3 (>32); POTASSIUM SERUM 4.1 MEQ/L (3.5-5.1)
== END ==
PROVIDERS: ATTEND Family Medicine
DX: E87.6 Hypokalemia (principal)

== ENCOUNTER → 2019-05-15 | Outpatient (REF) | payer MEDICARE ==
[2019-05-15 10:10] LABS: HEMATOCRIT 32.7 % (36.0-47.0); HEMOGLOBIN 10.6 g/dl (12.0-15.5); MEAN CORPUSCULAR HEMOGLOBIN 31.7 pg (27.0-33.0); MEAN CORPUSCULAR HGB CONC 32.4 g/dl (32.0-36.5); MEAN CORPUSCULAR VOLUME 97.9 fl (80.0-96.0); PLATELET COUNT, AUTOMATED 166 10^3/uL (150-450); RED BLOOD COUNT 3.34 10^6/uL (4.00-5.40); WHITE BLOOD COUNT 8.6 10^3/uL (4.0-10.0)
[2019-05-15 10:33] LABS: CALCIUM LEVEL 8.4 MG/DL (8.8-10.2); CREATININE FOR GFR 0.99 MG/DL (0.55-1.30); GLOMERULAR FILTRATION RATE 56.9 (>32); POTASSIUM SERUM 4.4 MEQ/L (3.5-5.1)
== END ==
PROVIDERS: ATTEND Family Medicine
DX: R19.7 Diarrhea, unspecified (principal)

== ENCOUNTER → 2019-05-19 | Outpatient (REF) | payer MEDICARE ==
--- NOTE | 2019-05-19 12:17 | REPPI ---
PORTABLE CHEST: AP portable view of the chest is performed and compared to a prior study of 05/10/2019. There is again cardiomegaly and vascular congestion with diffuse interstitial edema pattern, as well as mild alveolar opacity in the left lung base. The findings are mildly improved compared to the prior exam. Mediastinal silhouette is unchanged. IMPRESSION: Mild improvement of diffuse pulmonary edema pattern and CHF pattern when compared to the prior study of the 05/10/2019. Electronically Signed by Farzad Andrew MD 05/19/2019 03:58 P
== END ==
PROVIDERS: ATTEND Physician Assistant
DX: I50.9 Heart failure, unspecified (principal)

== ENCOUNTER → 2019-05-22 | Outpatient (REF) | payer MEDICARE ==
[2019-05-22 10:11] LABS: CALCIUM LEVEL 9.3 MG/DL (8.8-10.2); CREATININE FOR GFR 1.15 MG/DL (0.55-1.30); GLOMERULAR FILTRATION RATE 47.9 (>32); POTASSIUM SERUM 4.2 MEQ/L (3.5-5.1)
== END ==
PROVIDERS: ATTEND Family Medicine
DX: I50.9 Heart failure, unspecified (principal)

== ENCOUNTER → 2019-07-05 | Outpatient (REF) | payer MEDICARE ==
[2019-07-05 09:53] LABS: HEMATOCRIT 37.3 % (36.0-47.0); MEAN CORPUSCULAR HEMOGLOBIN 31.6 pg (27.0-33.0); MEAN CORPUSCULAR HGB CONC 32.2 g/dl (32.0-36.5); MEAN CORPUSCULAR VOLUME 98.2 fl (80.0-96.0); PLATELET COUNT, AUTOMATED 226 10^3/uL (150-450); WHITE BLOOD COUNT 11.2 10^3/uL (4.0-10.0)
[2019-07-05 10:16] LABS: CALCIUM LEVEL 8.7 MG/DL (8.8-10.2); CREATININE FOR GFR 0.97 MG/DL (0.55-1.30); GLOMERULAR FILTRATION RATE 58.2 (>32); POTASSIUM SERUM 4.1 MEQ/L (3.5-5.1)
== END ==
PROVIDERS: ATTEND Family Medicine
DX: I63.9 Cerebral infarction, unspecified (principal)

== ENCOUNTER → 2019-08-28 | Outpatient (REF) | PROVIDERS: ATTEND Internal Medicine | DX: Z03.818 Encounter for observation for suspected exposure to other biological agents ruled out (principal) ==

== ENCOUNTER → 2019-10-04 | Outpatient (REF) | payer MEDICARE, OTHER ==
[~2019-10-04] MED LIST changes: +LISI10TA22 PO; -LISI10TA4 PO
[2019-10-04 11:27] LABS: HEMATOCRIT 36.5 % (36.0-47.0); HEMOGLOBIN 11.8 g/dl (12.0-15.5); MEAN CORPUSCULAR HEMOGLOBIN 31.2 pg (27.0-33.0); MEAN CORPUSCULAR HGB CONC 32.3 g/dl (32.0-36.5); MEAN CORPUSCULAR VOLUME 96.6 fl (80.0-96.0); PLATELET COUNT, AUTOMATED 182 10^3/uL (150-450); RED BLOOD COUNT 3.78 10^6/uL (4.00-5.40); WHITE BLOOD COUNT 10.7 10^3/uL (4.0-10.0)
[2019-10-04 12:00] LABS: CREATININE FOR GFR 1.27 MG/DL (0.55-1.30); GLOMERULAR FILTRATION RATE 42.7 (>32); POTASSIUM SERUM 4.5 MEQ/L (3.5-5.1)
== END ==
PROVIDERS: ATTEND Family Medicine
DX: I63.9 Cerebral infarction, unspecified (principal)

== ENCOUNTER → 2020-01-11 | Outpatient (REF) ==
[~2020-01-11] MED LIST changes: -LISI10TA22 PO; +LISI10TA4 PO
[2020-01-11 10:10] LABS: HEMATOCRIT 41.6 % (36.0-47.0); HEMOGLOBIN 13.4 g/dl (12.0-15.5); MEAN CORPUSCULAR HEMOGLOBIN 31.3 pg (27.0-33.0); MEAN CORPUSCULAR HGB CONC 32.2 g/dl (32.0-36.5); MEAN CORPUSCULAR VOLUME 97.2 fl (80.0-96.0); PLATELET COUNT, AUTOMATED 213 10^3/uL (150-450); RED BLOOD COUNT 4.28 10^6/uL (4.00-5.40); WHITE BLOOD COUNT 11.5 10^3/uL (4.0-10.0)
[2020-01-11 10:38] LABS: CALCIUM LEVEL 9.2 MG/DL (8.8-10.2); CREATININE FOR GFR 1.22 MG/DL (0.55-1.30); GLOMERULAR FILTRATION RATE 44.6 (>32); POTASSIUM SERUM 4.4 MEQ/L (3.5-5.1)
== END ==
PROVIDERS: ATTEND Family Medicine
DX: Z86.73 Personal history of transient ischemic attack (TIA), and cerebral infarction without residual deficits (principal)

== ENCOUNTER → 2020-02-22 | Outpatient (REF) | PROVIDERS: ATTEND Internal Medicine | DX: Z20.828 Contact with and (suspected) exposure to other viral communicable diseases (principal) ==

== ENCOUNTER → 2020-02-29 | Outpatient (REF) | payer MEDICARE, OTHER ==
[~2020-02-29] MED LIST changes: +LISI10TA22 PO; -LISI10TA4 PO
== END ==
LOC: EDSTATUS 04-08 12:19
PROVIDERS: ATTEND Internal Medicine
DX: Z20.828 Contact with and (suspected) exposure to other viral communicable diseases (principal)

== ENCOUNTER → 2020-03-06 | Outpatient (REF) | payer MEDICARE | PROVIDERS: ATTEND Internal Medicine | DX: Z20.828 Contact with and (suspected) exposure to other viral communicable diseases (principal) ==

== ENCOUNTER → 2020-03-21 | Outpatient (REF) ==
[~2020-03-21] MED LIST changes: -LISI10TA22 PO; +LISI10TA4 PO
--- NOTE | 2020-03-21 15:42 | REPPI ---
INDICATION: HYPOXIA [id number]. COMPARISON: Portable chest dated 11/15/2017, portable chest dated 11/19/2017, portable chest dated 09/16/2018, portable chest dated 05/10/2019, and portable chest dated 05/19/2019. TECHNIQUE: Single frontal view of the chest performed portably. FINDINGS: There is chronic diffuse interstitial coarsening. There are no focal infiltrates. No pleural effusions. There is chronic cardiomegaly. The patient is rotated. IMPRESSION: Chronic interstitial coarsening and chronic cardiomegaly. No acute cardiopulmonary findings. Patient rotated. <Electronically signed by Farzad Villar > 03/21/20 [id number]
[2020-03-21 17:16] LABS: HEMATOCRIT 43.2 % (36.0-47.0); HEMOGLOBIN 13.8 g/dl (12.0-15.5); MEAN CORPUSCULAR HEMOGLOBIN 30.5 pg (27.0-33.0); MEAN CORPUSCULAR HGB CONC 31.9 g/dl (32.0-36.5); MEAN CORPUSCULAR VOLUME 95.6 fl (80.0-96.0); PLATELET COUNT, AUTOMATED 162 10^3/uL (150-450); RED BLOOD COUNT 4.52 10^6/uL (4.00-5.40); WHITE BLOOD COUNT 9.7 10^3/uL (4.0-10.0)
[2020-03-21 17:32] LABS: CALCIUM LEVEL 9.3 MG/DL (8.8-10.2); CREATININE FOR GFR 1.85 MG/DL (0.55-1.30); GLOMERULAR FILTRATION RATE 27.6 (>32); POTASSIUM SERUM 4.3 MEQ/L (3.5-5.1)
[2020-03-21 20:36] LABS: APPEARANCE, URINE TURBID (CLEAR); BACTERIA, URINE AUTO 3+ (NEGATIVE); BILIRUBIN, URINE AUTO NEGATIVE (NEGATIVE); BLOOD, URINE BLOOD 3+ (NEGATIVE); COLOR, URINE YELLOW (YELLOW); GLUCOSE, URINE (UA) AUTO 3+ mg/dL (NEGATIVE); KETONE, URINE AUTO NEGATIVE (NEGATIVE); LEUKOCYTE ESTERASE, URINE AUTO 3+ (NEGATIVE); NITRITE, URINE AUTO NEGATIVE (NEGATIVE); PROTEIN, URINE AUTO 2+ mg/dL (NEGATIVE); RBC, URINE AUTO 50 /HPF (0-3); SPECIFIC GRAVITY URINE AUTO 1.008 (1.002-1.035); SQUAMOUS EPITHELIAL CELL UR AU 6 /HPF (0-6); UROBILINOGEN, URINE AUTO 0.2 mg/dL (0.0-2.0); WBC, URINE AUTO TNTC /HPF (0-3)
== END ==
PROVIDERS: ATTEND Family Medicine
DX: R50.9 Fever, unspecified (principal); R09.02 Hypoxemia